=== PATIENT | female | born 1955 | race Caucasian/White ===

== ENCOUNTER → 2016-12-15 | Outpatient (CLI) | payer OTHER ==
[~2016-12-15] MED LIST: ALBU0.086 INH; ALBU6.7H INH; AMLO5 PO; BUPR-197 PO; FLUT1INH PO; HYDR-3580 PO; HYDR1CAP30 PO; ONDA4 PO; TIOT18I INH
--- NOTE | 2016-12-20 10:31 | RSPPFT ---
DATE OF PROCEDURE: 12/15/16 COMMENTS: Spirometry with FVC of 1.4 predicted 2.3, FEV1 of 0.9 predicted 1.9, FEV1/FVC ratio 65% predicted 84%. Post-bronchodilator FVC increases to 1.7. Lung volumes show significant air trapping with RV at 2.9 predicted 1.6. DLCO is 36% of predicted. IMPRESSION: On the basis of the above, patient has an obstructive lung defect with responsiveness to acutely inhaled bronchodilator. Severe air trapping is present. DLCO is decreased.
== END ==
LOC: HRSP 12:42
PROVIDERS: ATTEND Internal Medicine Pulmonary Disease
DX: R06.02 Shortness of breath (principal)
CPT/HCPCS: 94060; 94620; 94726; 94729

== ENCOUNTER → 2016-12-20 | Outpatient (CLI) | payer OTHER ==
--- NOTE | 2016-12-20 10:44 | RADRPT ---
EXAM DATE/TIME: 12/20/2016 10:17 [place] COMPARISON: No previous studies available for comparison. INDICATIONS : Dysphagia. Patient stated that pills were getting stuck. FLUORO TIME: 1.0 minutes IMAGE COUNT: 1 CONTRAST: Dose as prescribed by speech pathologist. MEDICAL HISTORY : Chronic obstructive pulmonary disease. Pt. is on steroids. Pt. states she was diagnosed with a hiatal hernia. SURGICAL HISTORY : None. ENCOUNTER: Initial ACUITY: 3 weeks PAIN SCORE: 0/10 LOCATION: Esophagus. FINDINGS: A modified barium swallow was performed with speech pathology. Patient was given a variety of liquids to swallow. Mild effacement is seen along the posterior margin of the upper cervical esophagus indicating mild cr icopharyngeus muscle hypertrophy. Swallowing mechanism is otherwise normal without evidence of aspiration. For a full detailed report, see report by the speech pathologist. CONCLUSION: Mild cricopharyngeus muscle hypertrophy Otherwise normal modified barium swallow without evidence of aspiration. Meek Simon MD on December 20, 2016 at 10:42 Board Certified Radiologist. This report was verified electronically.
== END ==
LOC: HRAD 09:49
PROVIDERS: ATTEND Internal Medicine Pulmonary Disease
DX: R13.10 Dysphagia, unspecified (principal)
CPT/HCPCS: 74230; 92611; G8996; G8997; G8998

== ENCOUNTER → 2017-08-09 | Outpatient (CLI) | payer OTHER | LOC: HCAV 10:41 | PROVIDERS: ATTEND Internal Medicine Pulmonary Disease | DX: J44.9 Chronic obstructive pulmonary disease, unspecified (principal) | CPT/HCPCS: 94618 ==

== ENCOUNTER 2018-06-20 15:59 | Inpatient (IN) ==
--- NOTE | 2018-06-20 17:37 | ED ---
HPI General Chief Complaint: Respiratory Symptoms Stated Complaint: sob/ dr sent Time Seen by Provider: 06/20/18 17:25 Source: patient Mode of arrival: ambulatory Limitations: no limitations History of Present Illness 62-year-old female complains of shortness of breath. Patient has history of COPD. Patient has been seen by her corporate law assistant several times this week for COPD exacerbation. Patient was given IM injection of steroid in the office. Patient states that she has been using nebulizer treatment at home. Last nebulizer treatment was yesterday. Patient denies any fever or chills. Patient states that she has mild intermittent dry cough. Patient denies any chest pain. Patient denies abdominal pain. Patient was seen by corporate law assistant today and was advised to go to ED to be admitted for acute exacerbation of COPD. Complaint: Reports shortness of breath and cough Onset (ago): day(s) Severity: severe Consistency/Duration: progressively worsening Relieving factors: bronchodilators Exacerbating factors: nothing Known history of: Reports COPD Associated symptoms: Reports cough and wheezing Treatment prior to arrival: Reports oxygen and bronchodilator Related Data Home Medications Medication Instructions Recorded Confirmed amlodipine [Norvasc] 5 mg PO DAILY 06/20/18 06/20/18 atorvastatin 20 mg PO DAILY 06/20/18 06/20/18 fluconazole 100 mg PO DAILY 06/20/18 06/20/18 fluticasone-vilanterol [Breo 1 inh INHALATION DAILY 06/20/18 06/20/18 Ellipta] ipratropium-albuterol 3 ml INHALATION QID 06/20/18 06/20/18 levothyroxine [Synthroid] 25 mcg PO DAILY 06/20/18 06/20/18 montelukast 10 mg PO DAILY 06/20/18 06/20/18 prednisone 20 mg PO TID 06/20/18 06/20/18 ranitidine HCl [Zantac] 150 mg PO BID 06/20/18 06/20/18 venlafaxine 225 mg PO TID 06/20/18 06/20/18 Allergies Allergy/AdvReac Type Severity Reaction Status Date / Time Sulfa (Sulfonamide Allergy Severe Hives Verified 06/20/18 17:26 Antibiotics) Review of Systems ROS: all other systems reviewed are negative PMFSH Medical History Medical History COPD (chronic obstructive pulmonary disease) (Acute) HBP (high blood pressure) (Acute) History of hysterectomy (Acute) Hypothyroidism (Acute) Surgical History Surgical History History of appendectomy (Acute) Hx of section (Acute) Social History Social History Substance History: No History of Abuse Second Hand Smoke Exposure: No Smoking Status: Former smoker Tobacco Type: Cigarettes How Often Do You Have a Drink Containing Alcohol: Monthly or less Recent Travel in [facility] within the Last 8 Weeks: No Recent Out of Country Travel within the Last 8 Weeks: No Immunization History Tetanus Immunization: >5 Years Exam Narrative Exam Narrative: GENERAL: Well-nourished, well-developed patient. SKIN: Focused skin assessment warm/dry. HEAD: Normocephalic. EYES: No scleral icterus. No injection or drainage. NECK: Supple, trachea midline. No JVD or lymphadenopathy. CARDIOVASCULAR: Regular rate and rhythm without murmurs, gallops, or rubs. RESPIRATORY: Breath sounds equal bilaterally. No accessory muscle use. Patient has moderate expiratory wheezes bilaterally. Few rhonchi at the bases. GASTROINTESTINAL: Abdomen soft, non-tender, nondistended. MUSCULOSKELETAL: No cyanosis, or edema. BACK: Nontender without obvious deformity. No CVA tenderness. Neurologic exam normal. Course Initial Documented Vital Signs Temperature 97.5 F L 06/20/18 16:04 Pulse Rate 93 H 06/20/18 16:04 Respiratory Rate 28 H 06/20/18 16:04 Blood Pressure 136/65 06/20/18 16:04 Pulse Oximetry 97 06/20/18 16:04 Last Documented Vital Signs Temperature 97.9 F 06/20/18 18:26 Pulse Rate 81 06/20/18 18:26 Respiratory Rate 20 06/20/18 18:26 Blood Pressure 129/60 06/20/18 18:26 Pulse Oximetry 96 06/20/18 18:26 Medical Decision Making MDM Narrative Medical decision making narrative: 62-year-old female with coughing wheezing and shortness of breath. History of COPD. Patient has been seen by corporate law assistant this week and was advised to be admitted for acute exacerbation COPD. Albuterol with Atrovent unit of treatment x3. Solu-Medrol 125 mg IV. Medical Screen Exam Complete: Yes Emergency Medical Condition: Yes Lab Data Lab results reviewed: Yes I reviewed the patient's lab results. Result diagrams: 06/20/18 17:30 06/20/18 17:45 Lab Results 06/20/18 06/20/18 Range/Units 17:30 17:45 WBC 14.1 H (4.0-11.0) th/mm3 RBC 4.59 (4.00-5.30) mil/mm3 Hgb 14.1 (11.6-15.3) gm/dL Hct 41.7 (35.0-46.0) % MCV 90.8 (80.0-100.0) fL MCH 30.7 (27.0-34.0) pg MCHC 33.8 (32.0-36.0) % RDW 13.3 (11.6-17.2) % Plt Count 200 (150-450) th/mm3 MPV 7.9 (7.0-11.0) fL Neut % (Auto) 82.7 H (16.0-70.0) % Lymph % (Auto) 6.6 L (9.0-44.0) % [place] % (Auto) 9.9 H (0.0-8.0) % Eos % (Auto) 0.6 (0.0-4.0) % Baso % (Auto) 0.2 (0.0-2.0) % Neut # (Auto) 11.7 H (1.8-7.7) th/mm3 Lymph # (Auto) 0.9 L (1.0-4.8) th/mm3 [place] # (Auto) 1.4 H (0.0-0.9) th/mm3 Eos # (Auto) 0.1 (0.0-0.4) th/mm3 Baso # (Auto) 0.0 (0.0-0.2) th/mm3 WBC Differential . Differential Comment Auto diff final Sodium 146 H (136-145) meq/L Potassium 4.5 (3.5-5.1) meq/L Chloride 111 H (98-107) meq/L Carbon Dioxide 30.8 (21.0-32.0) meq/L Anion Gap 4 L (5-15) meq/L BUN 26 H (7-18) mg/dL Creatinine 0.70 (0.50-1.00) mg/dL Estimated GFR 85 L (>89) mL/min Random Glucose 76 (74-106) mg/dL Calcium 8.3 L (8.5-10.1) mg/dL Total Bilirubin 0.4 (0.2-1.0) mg/dL AST 17 (15-37) U/L ALT 38 (10-53) U/L Alkaline Phosphatase 57 (45-117) U/L Total Protein 5.9 L (6.4-8.2) g/dL Albumin 3.2 L (3.4-5.0) g/dL Imaging Data Attestation: I personally reviewed and interpreted this imaging study as follows : Radiologist's impression: Chest X-Ray 06/20/18 17:32 CONCLUSION: 1. No acute cardiopulmonary disease identified. 2. Prominent emphysematous findings of the right upper lobe. Discharge Plan Discharge Disposition Patient Disposition: ED Admit(ED Internal Use Only) Discharge Order Discharge Orders: ED Use Only Admit Order (Routine); Ordered 06/20/18 Ordered By: Erasto Day Discharge Details Diagnosis: COPD with acute exacerbation Physicians Team ED Provider: Erasto Day Primary Care Provider: Zander Rivers Rxs /Orders / Referrals /Forms Prescriptions: No Action fluconazole 100 mg Tablet 100 mg PO DAILY RF: 0 atorvastatin 20 mg Tablet 20 mg PO DAILY RF: 0 ipratropium-albuterol 0.5 mg-3 mg(2.5 mg base)/3 mL Solution For Nebulization 3 ml INHALATION QID RF: 0 prednisone 20 mg Tablet 20 mg PO TID RF: 0 amlodipine [Norvasc] 5 mg Tablet 5 mg PO DAILY RF: 0 levothyroxine [Synthroid] 25 mcg Tablet 25 mcg PO DAILY RF: 0 ranitidine HCl [Zantac] 150 mg Tablet 150 mg PO BID RF: 0 montelukast 10 mg Tablet 10 mg PO DAILY RF: 0 venlafaxine 225 mg Tablet Extended Release 24hr 225 mg PO TID RF: 0 fluticasone-vilanterol [Breo Ellipta] 200-25 mcg/dose Blister With Device 1 inh INHALATION DAILY RF: 0 Status ED Status: With Doctor
[2018-06-20 17:52] LABS: Baso % (Auto) 0.2 % (0.0-2.0); Eos # (Auto) 0.1 th/mm3 (0.0-0.4); Eos % (Auto) 0.6 % (0.0-4.0); Hematocrit 41.7 % (35.0-46.0); Hemoglobin 14.1 gm/dL (11.6-15.3); Lymph # (Auto) 0.9 th/mm3 (1.0-4.8); Lymph % (Auto) 6.6 % (9.0-44.0); Mean Corpuscular HGB Conc 33.8 % (32.0-36.0); Mean Corpuscular Hemoglobin 30.7 pg (27.0-34.0); Mean Corpuscular Volume 90.8 fL (80.0-100.0); Mean Platelet Volume 7.9 fL (7.0-11.0); Mono # (Auto) 1.4 th/mm3 (0.0-0.9); Mono % (Auto) 9.9 % (0.0-8.0); Neut # (Auto) 11.7 th/mm3 (1.8-7.7); Neut % (Auto) 82.7 % (16.0-70.0); Platelet Count 200 th/mm3 (150-450); Red Blood Count 4.59 mil/mm3 (4.00-5.30); Red Cell Distribution Width 13.3 % (11.6-17.2); White Blood Count 14.1 th/mm3 (4.0-11.0)
--- NOTE | 2018-06-20 17:57 | XR ---
EXAM DATE: 06/20/2018 5:53 PM EST AGE/SEX: 62 years / Female INDICATIONS: Shortness of breath. Congestion. CLINICAL DATA: This is the patient's initial encounter. Patient reports that signs and symptoms have been present for 1 week and indicates a pain score of 0/10. MEDICAL/SURGICAL HISTORY: Chronic obstructive pulmonary disease. None. COMPARISON: [facility], XR CHEST PA AND LAT, 05/27/2018. . FINDINGS: Single AP view the chest. Emphysematous findings in the right upper lung zone. The lungs ar e clear. Cardiomediastinal silhouette within normal limits. No evidence of pleural effusion or pneu mothorax. CONCLUSION: 1. No acute cardiopulmonary disease identified. 2. Prominent emphysematous findings of the right upper lobe. Electronically signed by: David Garrison MD Board Certified Radiologist 06/20/2018 5:56 PM EST
[2018-06-20 18:33] LABS: Albumin 3.2 g/dL (3.4-5.0); Anion Gap 4 meq/L (5-15); Aspartate Aminotransferase 17 U/L (15-37); Blood Urea Nitrogen 26 mg/dL (7-18); Calcium 8.3 mg/dL (8.5-10.1); Carbon Dioxide 30.8 meq/L (21.0-32.0); Chloride 111 meq/L (98-107); Glomerular Filtration Rate 85 mL/min (>89); Glucose,Random 76 mg/dL (74-106); Potassium 4.5 meq/L (3.5-5.1); Sodium 146 meq/L (136-145)
[2018-06-20 18:35] LABS: Alanine Aminotransferase 38 U/L (10-53)
[2018-06-20 18:36] LABS: Alkaline Phosphatase 57 U/L (45-117); Total Protein 5.9 g/dL (6.4-8.2)
[2018-06-20] MEDS ORDERED: Bisacodyl 10 MG Supp RECTAL PRN (19:22)
[2018-06-20] MEDS ORDERED: Acetaminophen 325 MG Tablet PO PRN (19:22)
[2018-06-20] MEDS ORDERED: Sodium Chlor 0.9% Inj 250 ML IV.SIG SCH (19:23)
--- NOTE | 2018-06-20 19:24 | P.HPIM ---
History of Present Illness Primary Care Physician: Clark Rivers MD History of Present Illness: This is a 62-year-old female with a PMH of HTN, Hypothyroidism and COPD who was referred to the ER by her Warehouse Delivery Manager, Dr. Landin, for admission. Pt reports ongoing SOB/wheezing for the last 3wks, has been on PO steroids w/ tapering dose since 06/06/18 w/ minimal improvement. Seen in office today and referred to the ER for admission. Denies fever or chills. +cough, non-productive. +dyspnea w/ exertion. No c/o chest pain. On arrival, BP 136/65, HR 93, O2 sat 97% on RA, Afebrile. WBC 14.1. BUN 26, GFR 85. CXR with prominent emphysematous findings right upper lobe. Diagnosis (1) HTN (hypertension): (2) Dehydration: (3) COPD (chronic obstructive pulmonary disease): Review of Systems PAST FAMILY HISTORY: Reviewed. No h/o DM or CAD Review of Systems: all other systems reviewed are negative [facility] Medical History Medical History COPD (chronic obstructive pulmonary disease) (Acute) HBP (high blood pressure) (Acute) History of hysterectomy (Acute) Hypothyroidism (Acute) Surgical History Surgical History History of appendectomy (Acute) Hx of section (Acute) Social History Social History Substance History: No History of Abuse Second Hand Smoke Exposure: No Smoking Status: Former smoker Tobacco Type: Cigarettes How Often Do You Have a Drink Containing Alcohol: Monthly or less Recent Travel in [facility] within the Last 8 Weeks: No Recent Out of Country Travel within the Last 8 Weeks: No Immunization History Tetanus Immunization: >5 Years Medications and Allergies Allergies Allergy/AdvReac Type Severity Reaction Status Date / Time Sulfa (Sulfonamide Allergy Severe Hives Verified 06/20/18 17:26 Antibiotics) Home Medications Medication Instructions Recorded Confirmed Type amlodipine [Norvasc] 5 mg PO DAILY 06/20/18 06/20/18 History atorvastatin 20 mg PO DAILY 06/20/18 06/20/18 History fluconazole 100 mg PO DAILY 06/20/18 06/20/18 History fluticasone-vilanterol [Breo 1 inh INHALATION DAILY 06/20/18 06/20/18 History Ellipta] ipratropium-albuterol 3 ml INHALATION QID 06/20/18 06/20/18 History levothyroxine [Synthroid] 25 mcg PO DAILY 06/20/18 06/20/18 History montelukast 10 mg PO DAILY 06/20/18 06/20/18 History prednisone 20 mg PO TID 06/20/18 06/20/18 History ranitidine HCl [Zantac] 150 mg PO BID 06/20/18 06/20/18 History venlafaxine 225 mg PO TID 06/20/18 06/20/18 History Physical Exam Vital signs: Vital Signs 06/20/18 16:04 06/20/18 17:33 06/20/18 17:39 Temperature 97.5 F L Pulse Rate 93 H 83 82 Respiratory Rate 28 H 30 H Blood Pressure 136/65 Pulse Oximetry 97 96 06/20/18 17:40 06/20/18 17:47 06/20/18 18:26 Temperature 97.9 F Pulse Rate 82 84 81 Respiratory Rate 26 H 24 20 Blood Pressure 129/60 Pulse Oximetry 96 06/20/18 19:15 Temperature Pulse Rate 82 Respiratory Rate 18 Blood Pressure 129/69 Pulse Oximetry 96 Intake & Output 06/20/18 06/20/18 06/21/18 06:59 18:59 06:59 Weight 53.07 kg Narrative: PE: GENERAL: Pleasant young white female in no acute distress. SKIN: Focused skin assessment warm and dry. +steroid facies. HEENT: PERRLA, EOMI. No scleral icterus or conjunctival pallor. No lid lag or facial droop. CARDIOVASCULAR: Regular rate and rhythm. No obvious murmurs to auscultation. No chest tenderness to palpation. RESPIRATORY: No obvious rhonchi. +wheezing. Breath sounds equal bilaterally. GASTROINTESTINAL: Abdomen soft, non-tender, nondistended. BS normal. MUSCULOSKELETAL: Extremities without clubbing, cyanosis, or edema. No obvious deformities. NEUROLOGICAL: Awake, alert and oriented x4. No focal neurologic deficits. Moving both upper and lower extremities spontaneously. PSYCHIATRIC: Appropriate mood and affect. Insight and judgment normal. Results Labs CBC & Chem 7: 06/20/18 17:30 06/20/18 17:45 Imaging Impressions Chest X-Ray 06/20/18 17:32 CONCLUSION: 1. No acute cardiopulmonary disease identified. 2. Prominent emphysematous findings of the right upper lobe. Caprini VTE Risk Assessment Caprini VTE Risk Assessment: No/Low Risk (score <= 1) Caprini Risk Assessment Model: Point Value = 1 Point Value = 2 Point Value = 3 Point Value = 5 Age 41-60 Minor surgery BMI > 25 kg/m2 Swollen legs Varicose veins or History of unexplained or recurrent spontaneous Oral contraceptives or hormone replacement Sepsis (< 1 month) Serious lung disease, including pneumonia (< 1 month) Abnormal pulmonary function Acute myocardial infarction Congestive heart failure (< 1 month) History of inflammatory bowel disease Medical patient at bed rest Age 61-74 Arthroscopic surgery Major open surgery (> 45 min) Laparoscopic surgery (> 45 min) Malignancy Confined to bed (> 72 hours) Immobilizing plaster cast Central venous access Age >= 75 History of VTE Family history of VTE Factor V Leiden Prothrombin [id number] Lupus anticoagulant Anticardiolipin antibodies Elevated serum homocysteine Heparin-induced thrombocytopenia Other congenital or acquired thrombophilia Stroke (< 1 month) Elective arthroplasty Hip, pelvis, or leg fracture Acute spinal cord injury (< 1 month) Prophylaxis Regimen: Total Risk Factor Score Risk Level Prophylaxis Regimen 0-1 Low Early ambulation 2 Moderate Order ONE of the following: *Sequential Compression Device (SCD) *Heparin 5000 units SQ BID 3-4 Higher Order ONE of the following medications: *Heparin 5000 units SQ TID *Enoxaparin/Lovenox 40 mg SQ daily (WT < 150 kg, CrCl > 30 mL/min) *Enoxaparin/Lovenox 30 mg SQ daily (WT < 150 kg, CrCl > 10-29 mL/min) *Enoxaparin/Lovenox 30 mg SQ BID (WT < 150 kg, CrCl > 30 mL/min) AND/OR *Sequential Compression Device (SCD) 5 or more Highest Order ONE of the following medications: *Heparin 5000 units SQ TID (Preferred with Epidurals) *Enoxaparin/Lovenox 40 mg SQ daily (WT < 150 kg, CrCl > 30 mL/min) *Enoxaparin/Lovenox 30 mg SQ daily (WT < 150 kg, CrCl > 10-29 mL/min) *Enoxaparin/Lovenox 30 mg SQ BID (WT < 150 kg, CrCl > 30 mL/min) AND *Sequential Compression Device (SCD) Assessment and Plan (1) HTN (hypertension): Code(s): I10 - Essential (primary) hypertension Status: Acute (2) Dehydration: Code(s): E86.0 - Dehydration Status: Acute (3) COPD (chronic obstructive pulmonary disease): Code(s): J44.9 - Chronic obstructive pulmonary disease, unspecified Status: Acute Plan A/P: 1. COPD: Chronic Respiratory Failure w/ Acute Exacerbation. Moderate. On PO steroids w/ taper since 06/06/18 w/ no improvement, referred to ER by Warehouse Delivery Manager for admission. +extensive wheezing on exam. O2 sat normal. Admit for Observation. Solu-Medrol, DuoNeb prn and q6h, Mucinex, resume home MDI. Monitor O2 2. Dehydration: BUN 26, GFR 85, no previous labs for comparison, likely acute due to increased respiratory losses, IVF, repeat labs in am, monitor I/O 3. HTN: Resume home medications, monitor BP closely. 4. DVT Prophylaxis: SCD/Teds 5. Social work for d/c planning as needed. Discussed w/ Case Management, pt meets Obs status at this time. 6. Case discussed w/ ER physician at length, labs/records/imaging reviewed by me.
[2018-06-20] MEDS ORDERED: Sodium Chlor 0.9% Inj 250 ML IV.SIG ONE (20:30)
[2018-06-20] MEDS: MethylPREDNISolone Sod Succinate Inj 40 MG/ML Vial IV.PUSH SCH (21:48)
[2018-06-20] MEDS: guaiFENesin 600 MG ER Tablet PO SCH (21:49)
[2018-06-20] MEDS: Famotidine 20 MG Tablet PO SCH (21:50)
[2018-06-20] MEDS: Senna/Docusate Sodium 8.6/50 MG Tablet PO SCH (23:17)
[2018-06-21] MEDS: MethylPREDNISolone Sod Succinate Inj 40 MG/ML Vial IV.PUSH SCH ×3 (02:30→14:17)
[2018-06-21 07:36] LABS: Baso % (Auto) 0.2 % (0.0-2.0); Hematocrit 43.3 % (35.0-46.0); Hemoglobin 14.9 gm/dL (11.6-15.3); Lymph # (Auto) 0.6 th/mm3 (1.0-4.8); Lymph % (Auto) 5.8 % (9.0-44.0); Mean Corpuscular HGB Conc 34.3 % (32.0-36.0); Mean Corpuscular Hemoglobin 31.5 pg (27.0-34.0); Mean Corpuscular Volume 91.7 fL (80.0-100.0); Mean Platelet Volume 8.2 fL (7.0-11.0); Mono # (Auto) 0.1 th/mm3 (0.0-0.9); Mono % (Auto) 0.6 % (0.0-8.0); Neut % (Auto) 93.4 % (16.0-70.0); Platelet Count 221 th/mm3 (150-450); Red Blood Count 4.72 mil/mm3 (4.00-5.30); Red Cell Distribution Width 15.5 % (11.6-17.2); White Blood Count 10.7 th/mm3 (4.0-11.0)
[2018-06-21 08:02] LABS: Albumin 3.2 g/dL (3.4-5.0); Anion Gap 6 meq/L (5-15); Aspartate Aminotransferase 12 U/L (15-37); Blood Urea Nitrogen 21 mg/dL (7-18); Calcium 8.2 mg/dL (8.5-10.1); Carbon Dioxide 28.3 meq/L (21.0-32.0); Chloride 108 meq/L (98-107); Glomerular Filtration Rate 79 mL/min (>89); Glucose,Random 155 mg/dL (74-106); Potassium 4.9 meq/L (3.5-5.1); Sodium 142 meq/L (136-145)
[2018-06-21 08:03] LABS: Alanine Aminotransferase 38 U/L (10-53)
[2018-06-21 08:05] LABS: Alkaline Phosphatase 60 U/L (45-117); Total Protein 6.1 g/dL (6.4-8.2)
--- NOTE | 2018-06-21 09:07 | P.PNIM ---
Subjective Interval history: Follow-up for COPD exacerbation. Patient reports feeling much better today. States her wheezing has significantly improved. She states she is finally able to speak in full sentences. She denies any significant shortness of breath mild dyspnea with exertion. She reports a continued cough, nonproductive, but feels "looser". Denies fevers or chills. States she has Breo inhaler, Incruse inhaler, Spiriva, and nebs at home. She states over the past month she has completed 2 courses of prednisone tapers and antibiotics. She denies any other medical complaints at this time. She follows with Dr. Landin pulmonology as outpatient. Physical Exam Vital signs: Vital Signs 06/20/18 16:04 06/20/18 17:33 06/20/18 17:39 Temperature 97.5 F L Pulse Rate 93 H 83 82 Respiratory Rate 28 H 30 H Blood Pressure 136/65 Pulse Oximetry 97 96 06/20/18 17:40 06/20/18 17:47 06/20/18 18:26 Temperature 97.9 F Pulse Rate 82 84 81 Respiratory Rate 26 H 24 20 Blood Pressure 129/60 Pulse Oximetry 96 06/20/18 19:15 06/20/18 20:00 06/20/18 22:02 Temperature 98.6 F Pulse Rate 82 88 81 Respiratory Rate 18 18 14 Blood Pressure 129/69 119/68 Pulse Oximetry 96 97 06/21/18 00:00 06/21/18 03:49 06/21/18 07:47 Temperature 98.0 F 97.8 F 97.6 F Pulse Rate 82 86 80 Respiratory Rate 18 16 18 Blood Pressure 108/84 127/91 H 147/75 H Pulse Oximetry 95 96 95 06/21/18 08:34 Temperature Pulse Rate 84 Respiratory Rate 18 Blood Pressure Pulse Oximetry Intake & Output 06/20/18 06/21/18 06/21/18 18:59 06:59 18:59 Intake Total 1460 / 1460 Balance 1460 / 1460 Weight 53.07 kg 53.07 kg Intake: IV 500 / 500 NS Inj 250 ML @ 500 mls/hr IV. 500 / 500 SIG BOLUS ONE Rx#:[id number] Oral 960 / 960 Other: # Voids 4 Date of Last Bowel Movement 06/20/18 Weight On Admission 53.07 kg Narrative: GENERAL: Well-nourished, well-developed pleasant middle-age female patient in [facility]. SKIN: Warm and dry. No rash. + Steroid grimes face with periorbital swelling. HEENT: Normocephalic. Atraumatic. Pupils equal and round. Mucous membranes pink and moist. CARDIOVASCULAR: Mildly tachycardic, regular rhythm. No murmur appreciated. RESPIRATORY: No accessory muscle use. Faint expiratory wheezing, otherwise clear. Breath sounds equal bilaterally. GASTROINTESTINAL: Abdomen soft, non-tender, nondistended. Normoactive bowel sounds x4. MUSCULOSKELETAL: No obvious deformities. Extremities without clubbing, cyanosis , or edema. NEUROLOGICAL: Awake and alert. No obvious cranial nerve deficits. Moving all extremities spontaneously. Normal speech. PSYCHIATRIC: Appropriate mood and affect; insight and judgment normal. Results Labs CBC & Chem 7: 06/21/18 06:50 06/21/18 06:50 Labs: Microbiology 06/20/18 17:51 Nasal Wash Influenza Types A,B Antigen - Final Negative for FLU A and B antigen Infection due to influenza A or B cannot be ruled out since the antigen present in the sample may be below the detection limit of the test. Imaging Imaging: Impressions Chest X-Ray 06/20/18 17:32 CONCLUSION: 1. No acute cardiopulmonary disease identified. 2. Prominent emphysematous findings of the right upper lobe. Assessment and Plan (1) HTN (hypertension): Code(s): I10 - Essential (primary) hypertension Status: Acute (2) Dehydration: Code(s): E86.0 - Dehydration Status: Acute (3) COPD (chronic obstructive pulmonary disease): Code(s): J44.9 - Chronic obstructive pulmonary disease, unspecified Status: Acute Plan 62-year-old female with a PMH of HTN, Hypothyroidism and COPD who was referred to the ER by her Manufacturing Production Technician, Dr. Landin, for admission. Pt reports ongoing SOB/wheezing for the last 3wks, has been on PO steroids w/ tapering dose since w/ minimal improvement. Sent by her air export coordinator Dr. Landin Acute COPD exacerbation: Failed outpatient management with 2 rounds of antibiotics and prednisone taper since early May. -CXR reviewed, shows prominent emphysematous findings in the right upper lobe -Continue steroids with IV Solu-Medrol 40 mg every 6 hours -Continue duo nebs every 6 hours and as needed -Continue Brio Ellipta -Mucinex twice daily -Consult pulmonology Dehydration: BUN 26, GFR 85, no previous labs for comparison, likely acute due to increased respiratory losses, -Give IVF -repeat labs improving HTN/HLD: Chronic, BP fairly well-controlled -Continue patient's Norvasc 5 mg daily, statin -Monitor BP, adjust antihypertensives as needed Hypothyroidism: Chronic -Continue patient's levothyroxine DVT Prophylaxis: SCD/Teds Discharge Planning: Likely discharge when cleared by pulmonology. Progress Note: Quality VTE Deep Vein Thrombosis/Pulmonary Embolism Present on Admission: No
[2018-06-21] MEDS: amLODIPine 5 MG Tablet PO SCH (09:46)
[2018-06-21] MEDS: Fluconazole 100 MG Tablet PO SCH (09:46)
[2018-06-21] MEDS: guaiFENesin 600 MG ER Tablet PO SCH ×2 (09:46→20:27)
[2018-06-21] MEDS: Senna/Docusate Sodium 8.6/50 MG Tablet PO SCH ×2 (09:46→20:29)
[2018-06-21] MEDS: Famotidine 20 MG Tablet PO SCH ×2 (09:46→20:27)
[2018-06-21] MEDS: Venlafaxine XR 75 MG Capsule PO SCH (09:46)
[2018-06-21] MEDS: Montelukast 10 MG Tablet PO SCH (09:54)
[2018-06-21 11:10] LABS: Lymphocytes 6 % (9-44); Monocytes 1 % (0-8); Myelocytes 1 % (0-0)
[2018-06-21 11:13] LABS: Platelet Estimate Normal (Normal); Platelet Morphology Normal (Normal)
--- NOTE | 2018-06-21 19:03 | MB ---
cc: Elgin Sandoval MD DATE: 06/21/2018 REQUESTING PHYSICIAN: Elsi Sorensen MD REASON FOR CONSULTATION: COPD, bronchitis. HISTORY OF PRESENT ILLNESS: Ms. Mirza is a pleasant 62-year-old female with history of hypertension, hypothyroidism, and bronchial asthma going on for the last few years. She has been disabled because of asthma for the last 4 years or so. Over the last 1 year, her symptoms are getting worse, and she says she is getting multiple courses of steroid to the extent that she has almost always been on prednisone. She came to the hospital with 3 weeks of worsening of shortness of breath, wheezing, congestion in the chest. No fever or chills. No night sweats. She was worked up in the hospital. She had a chest x-ray which showed no acute infiltrate. LABORATORY DATA: Her CBC showed WBC count 10.7, hemoglobin 14.9, hematocrit 43.3, MCV 90, and platelet count 221. Sodium 142, potassium 4.9, chloride 108, CO2 of 28, BUN 21, creatinine 0.75. PAST MEDICAL HISTORY: Significant for history of asthma, hypertension, hypothyroidism, history of 3 C-sections. SURGICAL HISTORY: History of appendectomy, sigmoidectomy, and complete hysterectomy. MEDICATIONS: 1. She is currently taking nebulizer treatment with DuoNeb. 2. Norvasc 5 mg daily. 3. Lipitor 20 mg a day. 4. Dulcolax suppository. 5. Pepcid 20 mg. 6. Diflucan 100 mg a day. 7. Breo Ellipta 200/25 once a day. 8. Solu-Medrol 40 mg every 6 hours. 9. Montelukast 10 mg a day. 10. Effexor 225 mg a day. ALLERGIES: SHE IS ALLERGIC TO SULFA. SOCIAL HISTORY: She used to work in the hospital in the sterile room. She is disabled for 4 years. She has history of smoking for 40-some years which she quit 3 years ago. Drinks socially. FAMILY HISTORY: She has 3 children. REVIEW OF SYSTEMS: Normally, she is up around and active. She does not know what causes flare-up in her symptoms. No seizures, stroke, epilepsy. No DVT or pulmonary embolism. PHYSICAL EXAMINATION: GENERAL: Well-developed, well-nourished female. Mildly short of breath and has audible wheezing. VITAL SIGNS: Her blood pressure 143/77, heart rate 103, respirations 22, temperature 98.6. HEENT: Pupils are equal and reactive to light. Oral mucosa and nasal mucosa normal. NECK: Supple. JVP not raised. CHEST: Bilateral expiratory rhonchi. CARDIOVASCULAR: S1, S2 normal. ABDOMEN: Benign. EXTREMITIES: No edema. IMPRESSION: 1. Chronic obstructive pulmonary disease exacerbation/bronchial asthma. 2. Bronchitis. 3. Hypertension. 4. Anxiety. 5. Hypothyroidism. 6. History of appendectomy, hysterectomy, sigmoidectomy. PLAN: 1. I discussed with the patient I will increase her Solu-Medrol to 125 mg every 6 hours for 24 hours and see the response. 2. Continue aerosol treatment with Breo Ellipta once a day. 3. Singulair 10 mg a day. 4. Zithromax 500 mg a day. 5. Heparin 5000 units every 12 hours for deep venous thrombosis prophylaxis. Further treatment will depend on the course in the hospital. Thank you, Dr. Elsi Sorensen, for this consult. MD WILLIAM Aceves/lorrie , 05:59 PM , 06:10 PM
[2018-06-21] MEDS: MethylPREDNISolone Sod Succinate Inj 125 MG/2 ML Vial IV.PUSH SCH (20:28)
[2018-06-22] MEDS: MethylPREDNISolone Sod Succinate Inj 125 MG/2 ML Vial IV.PUSH SCH ×5 (01:55→23:45)
[2018-06-22] MEDS: Fluconazole 100 MG Tablet PO SCH (08:24)
[2018-06-22] MEDS: amLODIPine 5 MG Tablet PO SCH (08:24)
[2018-06-22] MEDS: Venlafaxine XR 75 MG Capsule PO SCH (08:25)
[2018-06-22] MEDS: Montelukast 10 MG Tablet PO SCH (08:25)
[2018-06-22] MEDS: Famotidine 20 MG Tablet PO SCH ×2 (08:26→23:50)
[2018-06-22] MEDS: guaiFENesin 600 MG ER Tablet PO SCH ×2 (08:26→23:50)
[2018-06-22] MEDS: Senna/Docusate Sodium 8.6/50 MG Tablet PO SCH ×2 (08:42→22:01)
--- NOTE | 2018-06-22 10:28 | P.PNIM ---
Subjective Interval history: Follow-up for COPD exacerbation. Patient states she started to feel worse last night, with increasing shortness of breath, dyspnea on exertion, wheezing, and cough. She states her cough has become more productive with yellowgreen sputum. Denies fevers or chills. She feels she would benefit from more frequent breathing treatments. She agrees to starting azithromycin. She has no other medical complaints at this time. Physical Exam Vital signs: Vital Signs 06/21/18 11:53 06/21/18 14:52 06/21/18 16:15 Temperature 98.7 F 98.6 F Pulse Rate 89 103 H 103 H Respiratory Rate 18 18 20 Blood Pressure 152/70 H 143/77 H Pulse Oximetry 95 97 06/21/18 19:46 06/21/18 20:00 06/21/18 23:13 Temperature 98.2 F Pulse Rate 101 H 107 H 94 H Respiratory Rate 19 22 19 Blood Pressure 160/82 H Pulse Oximetry 96 92 L 06/21/18 23:21 06/21/18 23:24 06/22/18 00:40 Temperature 98.2 F Pulse Rate 102 H 100 H Respiratory Rate 22 Blood Pressure 145/84 H Pulse Oximetry 96 94 L 06/22/18 03:24 06/22/18 07:37 06/22/18 08:00 Temperature 98.6 F 97.7 F Pulse Rate 96 H 90 90 Respiratory Rate 20 18 18 Blood Pressure 123/73 140/81 Pulse Oximetry 97 97 06/22/18 10:02 Temperature Pulse Rate 85 Respiratory Rate 16 Blood Pressure Pulse Oximetry Intake & Output 06/21/18 06/22/18 06/22/18 18:59 06:59 18:59 Other: # Voids 5 2 Date of Last Bowel Movement 06/21/18 Narrative: GENERAL: Well-nourished, well-developed pleasant middle-age female patient in [facility]. SKIN: Warm and dry. No rash. + Steroid grimes face with periorbital swelling. HEENT: Normocephalic. Atraumatic. Pupils equal and round. Mucous membranes pink and moist. CARDIOVASCULAR: Mildly tachycardic, regular rhythm. No murmur appreciated. RESPIRATORY: No accessory muscle use. Significant diffuse wheezing and poor air movement throughout all lung dickens. Breath sounds equal bilaterally. GASTROINTESTINAL: Abdomen soft, non-tender, nondistended. Normoactive bowel sounds x4. MUSCULOSKELETAL: No obvious deformities. Extremities without clubbing, cyanosis , or edema. NEUROLOGICAL: Awake and alert. No obvious cranial nerve deficits. Moving all extremities spontaneously. Normal speech. PSYCHIATRIC: Appropriate mood and affect; insight and judgment normal. Results Labs CBC & Chem 7: 06/21/18 06:50 06/21/18 06:50 Assessment and Plan (1) HTN (hypertension): Code(s): I10 - Essential (primary) hypertension Status: Acute (2) Dehydration: Code(s): E86.0 - Dehydration Status: Acute (3) COPD (chronic obstructive pulmonary disease): Code(s): J44.9 - Chronic obstructive pulmonary disease, unspecified Status: Acute Plan 62-year-old female with a PMH of HTN, Hypothyroidism and COPD who was referred to the ER by her Americanization Teacher, Dr. Landin, for admission. Pt reports ongoing SOB/wheezing for the last 3wks, has been on PO steroids w/ tapering dose since w/ minimal improvement. Sent by her manager retirement Dr. Landin Acute COPD exacerbation: Failed outpatient management with 2 rounds of antibiotics and prednisone taper since early May. -CXR reviewed, shows prominent emphysematous findings in the right upper lobe -Continue steroids with IV Solu-Medrol -Continue duo nebs every 4 hours and as needed -Continue Brio Ellipta -Mucinex twice daily, Tessalon Perrles tid -Consult pulmonology, appreciate assistance, increased steroids to IV Solu- Medrol 125 mg q6h -Added Azithromycin 500mg daily -Patient with significant wheezing/dyspnea, minimal improvement in observation, will admit Dehydration: BUN 26, GFR 85, no previous labs for comparison, likely acute due to increased respiratory losses, -Give IVF -repeat labs improving HTN/HLD: Chronic, BP fairly well-controlled -Continue patient's Norvasc 5 mg daily, statin -Monitor BP, adjust antihypertensives as needed Hypothyroidism: Chronic -Continue patient's levothyroxine DVT Prophylaxis: heparin, SCD/Teds Discharge Planning: Patient has had minimal improvement in observation, still with significant wheezing and poor air movement, now requiring oxygen. Requires admission for at least an additional 2-3 days of IV steroids and DuoNeb treatments. Likely discharge when clinically improved and cleared by pulmonology. Patient does not wear oxygen at home, may need home oxygen walk test prior to discharge if unable to wean off. Patient does have nebulizer machine, Breo inhaler, Incruse inhaler, Spiriva at home. Progress Note: Quality VTE Deep Vein Thrombosis/Pulmonary Embolism Present on Admission: No
[2018-06-22] MEDS: Azithromycin 250 MG Tablet PO SCH (11:57)
[2018-06-22] MEDS: Benzonatate 100 MG Capsule PO SCH ×2 (13:07→17:20)
--- NOTE | 2018-06-22 14:30 | P.PNIM ---
Subjective Interval history: Follow up for COPD exacerbation. The patient states she was doing better yesterday afternoon, however last night she had to use the oxygen most of the night. The patient reports shortness of breath, productive cough with green colored phlegm, wheezing and mild throat irritation. The patient endorses she received a breathing treatment earlier this morning but would like to have another treatment. Advised the patient, RT will be notified and verbalized understanding. She denies any recent fever/chills or chest pain. Denies any nausea or vomiting. Patient tolerating oral intake. Vital signs reviewed and stable. Spoke to RN, asked her to speak to RT about providing another treatment and no new concerns. Physical Exam Vital signs: Vital Signs 06/21/18 14:52 06/21/18 16:15 06/21/18 19:46 Temperature 98.6 F Pulse Rate 103 H 103 H 101 H Respiratory Rate 18 20 19 Blood Pressure 143/77 H Pulse Oximetry 97 96 06/21/18 20:00 06/21/18 23:13 06/21/18 23:21 Temperature 98.2 F 98.2 F Pulse Rate 107 H 94 H 102 H Respiratory Rate 22 19 22 Blood Pressure 160/82 H 145/84 H Pulse Oximetry 92 L 96 06/21/18 23:24 06/22/18 00:40 06/22/18 03:24 Temperature 98.6 F Pulse Rate 100 H 96 H Respiratory Rate 20 Blood Pressure 123/73 Pulse Oximetry 94 L 97 06/22/18 07:37 06/22/18 08:00 06/22/18 10:02 Temperature 97.7 F Pulse Rate 90 90 85 Respiratory Rate 18 18 16 Blood Pressure 140/81 Pulse Oximetry 97 06/22/18 11:16 06/22/18 12:00 06/22/18 12:21 Temperature 98.2 F Pulse Rate 78 105 H 82 Respiratory Rate 20 16 Blood Pressure 126/66 Pulse Oximetry 97 Intake & Output 06/21/18 06/22/18 06/22/18 18:59 06:59 18:59 Other: # Voids 5 2 Date of Last Bowel Movement 06/21/18 06/21/18 Narrative: GENERAL: Well-nourished, well-developed pleasant middle-age female patient in mild respiratory distress. SKIN: Warm and dry. No rash. + Steroid grimes face with periorbital swelling. HEENT: Normocephalic. Atraumatic. Pupils equal and round. Mucous membranes pink and moist. Posterior oropharynx mild erythema noted CARDIOVASCULAR: Regular rate and rhythm. No murmur appreciated. RESPIRATORY: Accessory muscle use noted. Audible expiratory wheezing noted. Poor air movement and expiratory wheezing in all lung dickens. GASTROINTESTINAL: Abdomen soft, non-tender, nondistended. Normoactive bowel sounds x4. MUSCULOSKELETAL: No obvious deformities. Extremities without clubbing, cyanosis , or edema. NEUROLOGICAL: Awake and alert. No obvious cranial nerve deficits. Moving all extremities spontaneously. Normal speech. PSYCHIATRIC: Appropriate mood and affect; insight and judgment normal. Results - Labs CBC & Chem 7: 06/21/18 06:50 06/21/18 06:50 Assessment and Plan - Plan 62-year-old female with a PMH of HTN, Hypothyroidism and COPD who was referred to the ER by her Front Maker, Dr. Landin, for admission. Pt reports ongoing SOB/wheezing for the last 3wks, has been on PO steroids w/ tapering dose since w/ minimal improvement. Sent by her broadcaster Dr. Landin Acute COPD exacerbation: Failed outpatient management with 2 rounds of antibiotics and prednisone taper since early May. -CXR reviewed, shows prominent emphysematous findings in the right upper lobe -Continue Brio Ellipta -Mucinex twice daily -Pulmonology consulted; Dr. Sandoval recommends Solu-Medrol to 125 mg every 6 hours for 24 hours, continue aerosol treatment with Breo Ellipta once a day, singulair 10 mg a day, zithromax 500 mg a day, heparin 5000 units every 12 hours for deep venous thrombosis prophylaxis -06/22: Continue steroids with IV Solu-Medrol 125 mg every 6 hours x [address] Sandoval -06/22: Increased duo nebs to every 4 hours and as needed; patient having increase wheezing and poor air movement -06/22: Started tesslon perles tid for cough -Continue to monitor Dehydration: BUN 26, GFR 85, no previous labs for comparison, likely acute due to increased respiratory losses -Give IVF -Repeat labs improving HTN/HLD: Chronic, BP fairly well-controlled -Continue patient's Norvasc 5 mg daily, statin -Monitor BP, adjust antihypertensives as needed Hypothyroidism: Chronic -Continue patient's levothyroxine DVT Prophylaxis: Heparin sq every 12 hours SCD/Teds Discharge Planning: Likely discharge when cleared by pulmonology. Note prepared by LOCO [email or web address]. Discussed the patient with Evi Sales PA-C, agrees with above assessment and plan. See official note from Evi Sales PA-C.
--- NOTE | 2018-06-22 15:31 | P.PN ---
Subjective Interval history: She is still wheezing. No chest pain.. Off O2 sat 93. Physical Exam Vital signs: Vital Signs 06/21/18 16:15 06/21/18 19:46 06/21/18 20:00 Temperature 98.6 F 98.2 F Pulse Rate 103 H 101 H 107 H Respiratory Rate 20 19 22 Blood Pressure 143/77 H 160/82 H Pulse Oximetry 97 96 92 L 06/21/18 23:13 06/21/18 23:21 06/21/18 23:24 Temperature 98.2 F Pulse Rate 94 H 102 H Respiratory Rate 19 22 Blood Pressure 145/84 H Pulse Oximetry 96 94 L 06/22/18 00:40 06/22/18 03:24 06/22/18 07:37 Temperature 98.6 F Pulse Rate 100 H 96 H 90 Respiratory Rate 20 18 Blood Pressure 123/73 Pulse Oximetry 97 06/22/18 08:00 06/22/18 10:02 06/22/18 11:16 Temperature 97.7 F Pulse Rate 90 85 78 Respiratory Rate 18 16 Blood Pressure 140/81 Pulse Oximetry 97 06/22/18 12:00 06/22/18 12:21 Temperature 98.2 F Pulse Rate 105 H 82 Respiratory Rate 20 16 Blood Pressure 126/66 Pulse Oximetry 97 Intake & Output 06/21/18 06/22/18 06/22/18 18:59 06:59 18:59 Other: # Voids 5 2 Date of Last Bowel Movement 06/21/18 06/21/18 GENERAL: Mid aged W/F alert SKIN: Warm and dry. HEAD: Atraumatic. Normocephalic. EYES: Pupils equal and round. No scleral icterus. No injection or drainage. ENT: No nasal bleeding or discharge. Mucous membranes pink and moist. NECK: Trachea midline. No JVD. CARDIOVASCULAR: Regular rate and rhythm. RESPIRATORY: Bilateral wheeze.. Breath sounds equal bilaterally. GASTROINTESTINAL: Abdomen soft, non-tender, nondistended. Hepatic and splenic margins not palpable. MUSCULOSKELETAL: Extremities without clubbing, cyanosis, or edema. No obvious deformities. NEUROLOGICAL: Awake and alert. No obvious cranial nerve deficits. Motor grossly within normal limits.. Normal speech. PSYCHIATRIC: Appropriate mood and affect; insight and judgment normal. Results - Labs CBC & Chem 7: 06/21/18 06:50 02/08/19 06:50 Assessment and Plan - Assessment (1) Asthma Code(s): J45.909 - Unspecified asthma, uncomplicated Status: Acute (2) COPD (chronic obstructive pulmonary disease) Code(s): J44.9 - Chronic obstructive pulmonary disease, unspecified Status: Acute (3) Dehydration Code(s): E86.0 - Dehydration Status: Acute (4) HTN (hypertension) Code(s): I10 - Essential (primary) hypertension Status: Acute (5) COPD with acute exacerbation Code(s): J44.1 - Chronic obstructive pulmonary disease with (acute) exacerbation Status: Acute - Plan 1. Cont solumedrol 80 mg IV Q8H 2. Duoneb nebs qid. 3. Cont singulair 10 mg daily. 4. O2 2 L N/C 5. PFT on Sunday
[2018-06-22] MEDS: Heparin - SQ 10,000 UNITS/ML Vial SQ SCH (23:50)
[2018-06-23] MEDS: MethylPREDNISolone Sod Succinate Inj 125 MG/2 ML Vial IV.PUSH SCH ×5 (06:01→22:37)
[2018-06-23] MEDS: Venlafaxine XR 75 MG Capsule PO SCH (08:38)
[2018-06-23] MEDS: amLODIPine 5 MG Tablet PO SCH (08:42)
[2018-06-23] MEDS: Benzonatate 100 MG Capsule PO SCH ×3 (08:42→17:11)
[2018-06-23] MEDS: guaiFENesin 600 MG ER Tablet PO SCH ×2 (08:42→22:34)
[2018-06-23] MEDS: Azithromycin 250 MG Tablet PO SCH (08:42)
[2018-06-23] MEDS: Famotidine 20 MG Tablet PO SCH ×2 (08:42→22:34)
[2018-06-23] MEDS: Senna/Docusate Sodium 8.6/50 MG Tablet PO SCH (08:42)
[2018-06-23] MEDS: Fluconazole 100 MG Tablet PO SCH (08:42)
[2018-06-23] MEDS: Heparin - SQ 10,000 UNITS/ML Vial SQ SCH ×2 (08:43→22:35)
[2018-06-23] MEDS: Montelukast 10 MG Tablet PO SCH (08:47)
--- NOTE | 2018-06-23 11:11 | P.PN ---
Subjective Interval history: Follow-up acute on chronic COPD exacerbation/chronic oxygen dependent d/t respiratory failure June 23, 2018-patient seen and examined, significant wheezing on both inspiration and expiration along with shortness of breath. Denies any chest pain Physical Exam Vital signs: Vital Signs 06/22/18 11:16 06/22/18 12:00 06/22/18 12:21 Temperature 98.2 F Pulse Rate 78 105 H 82 Respiratory Rate 20 16 Blood Pressure 126/66 Pulse Oximetry 97 06/22/18 16:00 06/22/18 18:17 06/22/18 18:21 Temperature 97.6 F Pulse Rate 99 H 100 H 90 Respiratory Rate 20 20 Blood Pressure 118/72 Pulse Oximetry 98 97 06/22/18 20:00 06/22/18 20:44 06/22/18 20:49 Temperature 97.9 F Pulse Rate 105 H 78 Respiratory Rate 18 16 Blood Pressure 131/82 Pulse Oximetry 95 96 06/23/18 00:00 06/23/18 00:32 06/23/18 03:45 Temperature 98.1 F Pulse Rate 88 74 72 Respiratory Rate 18 16 16 Blood Pressure 109/61 Pulse Oximetry 99 06/23/18 04:00 06/23/18 07:20 06/23/18 08:18 Temperature 98 F 98.2 F Pulse Rate 91 H 94 H 91 H Respiratory Rate 18 20 16 Blood Pressure 112/59 L 130/66 Pulse Oximetry 94 L 99 93 L Intake & Output 06/22/18 06/23/18 06/23/18 18:59 06:59 18:59 Intake Total 240 / 240 Balance 240 / 240 Intake: Oral 240 / 240 Other: # Voids 2 1 Date of Last Bowel Movement 06/21/18 06/23/18 Narrative: GENERAL: NAD SKIN: Warm and dry. HEAD: Atraumatic. Normocephalic. EYES: Pupils equal and round. No scleral icterus. No injection or drainage. ENT: No nasal bleeding or discharge. Mucous membranes pink and moist. NECK: Trachea midline. No JVD. CARDIOVASCULAR: Regular rate and rhythm. RESPIRATORY: No accessory muscle use. Breath sounds decreased bilaterally. Inspiratory and expiratory wheezes bilaterally GASTROINTESTINAL: Abdomen soft, non-tender, nondistended. Hepatic and splenic margins not palpable. MUSCULOSKELETAL: Extremities without clubbing, cyanosis, or edema. No obvious deformities. NEUROLOGICAL: Awake and alert. No obvious cranial nerve deficits. Motor grossly within normal limits. Five out of 5 muscle strength in the arms and legs. Normal speech. PSYCHIATRIC: Appropriate mood and affect; insight and judgment normal. Results - Labs CBC & Chem 7: 06/21/18 06:50 06/21/18 06:50 - Procedures None Assessment and Plan - Assessment (1) HTN (hypertension) Code(s): I10 - Essential (primary) hypertension Status: Acute (2) Dehydration Code(s): E86.0 - Dehydration Status: Acute (3) COPD (chronic obstructive pulmonary disease) Code(s): J44.9 - Chronic obstructive pulmonary disease, unspecified Status: Acute - Plan 62-year-old female with Acute on chronic COPD exacerbation Chronic respiratory failure on oxygen dependent Currently on Solu-Medrol 80 mg IV every 6 hours, azithromycin, long-acting and short acting beta agonist, Singulair, Mucinex Consider prophylactic ISS secondary to steroid-induced hyperglycemia Maintain oxygen saturation above 92% Plan for PFT on Sunday per pulmonary medicine Dehydration: BUN 26, GFR 85, no previous labs for comparison, likely acute due to increased respiratory losses -Resolved HTN/HLD: Chronic -Continue Norvasc 5 mg daily, statin Hypothyroidism: Chronic -Continue levothyroxine DVT Prophylaxis: Heparin sq every 12 hours SCD/Teds Consult PT to treat and eval CMP in a.m.
--- NOTE | 2018-06-23 16:05 | P.PN ---
Subjective Interval history: She is making some progress. On O2 2 L. Less wheezing and cough Still on Solu-Medrol 80 mg IV. Seems anxious. Physical Exam Vital signs: Vital Signs 06/22/18 18:17 06/22/18 18:21 06/22/18 20:00 Temperature 97.9 F Pulse Rate 100 H 90 105 H Respiratory Rate 20 18 Blood Pressure 131/82 Pulse Oximetry 97 95 06/22/18 20:44 06/22/18 20:49 06/23/18 00:00 Temperature 98.1 F Pulse Rate 78 88 Respiratory Rate 16 18 Blood Pressure 109/61 Pulse Oximetry 96 99 06/23/18 00:32 06/23/18 03:45 06/23/18 04:00 Temperature 98 F Pulse Rate 74 72 91 H Respiratory Rate 16 16 18 Blood Pressure 112/59 L Pulse Oximetry 94 L 06/23/18 07:20 06/23/18 08:18 06/23/18 11:20 Temperature 98.2 F 98.1 F Pulse Rate 94 H 91 H 68 Respiratory Rate 20 16 18 Blood Pressure 130/66 152/67 H Pulse Oximetry 99 93 L 97 06/23/18 11:35 06/23/18 13:55 Temperature Pulse Rate 77 97 H Respiratory Rate 16 Blood Pressure Pulse Oximetry Intake & Output 06/22/18 06/23/18 06/23/18 18:59 06:59 18:59 Intake Total 240 / 240 Balance 240 / 240 Intake: Oral 240 / 240 Other: # Voids 2 1 Date of Last Bowel Movement 06/21/18 06/23/18 Narrative: GENERAL: Middle-aged white female alert NAD SKIN: Warm and dry. HEAD: Atraumatic. Normocephalic. EYES: Pupils equal and round. No scleral icterus. No injection or drainage. ENT: No nasal bleeding or discharge. Mucous membranes pink and moist. NECK: Trachea midline. No JVD. CARDIOVASCULAR: Regular rate and rhythm. RESPIRATORY: No accessory muscle use. Breath sounds decreased bilaterally. Inspiratory and expiratory wheezes bilaterally GASTROINTESTINAL: Abdomen soft, non-tender, nondistended. Hepatic and splenic margins not palpable. MUSCULOSKELETAL: Extremities without clubbing, cyanosis, or edema. No obvious deformities. NEUROLOGICAL: Awake and alert. No obvious cranial nerve deficits. Motor grossly within normal limits. Results - Labs CBC & Chem 7: 06/21/18 06:50 06/21/18 06:50 - Procedures None Assessment and Plan - Assessment (1) Asthma Code(s): J45.909 - Unspecified asthma, uncomplicated Status: Acute (2) COPD (chronic obstructive pulmonary disease) Code(s): J44.9 - Chronic obstructive pulmonary disease, unspecified Status: Acute (3) Dehydration Code(s): E86.0 - Dehydration Status: Acute (4) HTN (hypertension) Code(s): I10 - Essential (primary) hypertension Status: Acute (5) COPD with acute exacerbation Code(s): J44.1 - Chronic obstructive pulmonary disease with (acute) exacerbation Status: Acute - Plan 1. Taper Solumedrol 60 mg IV Q8H 2. Duoneb nebs qid. 3. Cont singulair 10 mg daily. 4. O2 2 L N/C 5. PFT on Sunday 6. Ambulate in halls
[2018-06-24] MEDS: MethylPREDNISolone Sod Succinate Inj 125 MG/2 ML Vial IV.PUSH SCH ×3 (05:55→17:03)
[2018-06-24 08:24] LABS: Alanine Aminotransferase 34 U/L (10-53); Albumin 3.1 g/dL (3.4-5.0); Anion Gap 6 meq/L (5-15); Aspartate Aminotransferase 11 U/L (15-37); Blood Urea Nitrogen 27 mg/dL (7-18); Calcium 8.7 mg/dL (8.5-10.1); Carbon Dioxide 30.3 meq/L (21.0-32.0); Chloride 109 meq/L (98-107); Glomerular Filtration Rate 77 mL/min (>89); Glucose,Random 131 mg/dL (74-106); Potassium 4.3 meq/L (3.5-5.1); Sodium 145 meq/L (136-145)
[2018-06-24 08:26] LABS: Alkaline Phosphatase 51 U/L (45-117); Total Protein 5.8 g/dL (6.4-8.2)
[2018-06-24] MEDS: Fluconazole 100 MG Tablet PO SCH (08:41)
[2018-06-24] MEDS: Famotidine 20 MG Tablet PO SCH ×2 (08:41→21:04)
[2018-06-24] MEDS: Venlafaxine XR 75 MG Capsule PO SCH (08:41)
[2018-06-24] MEDS: Benzonatate 100 MG Capsule PO SCH ×3 (08:42→17:03)
[2018-06-24] MEDS: Heparin - SQ 10,000 UNITS/ML Vial SQ SCH ×2 (08:42→21:05)
[2018-06-24] MEDS: Azithromycin 250 MG Tablet PO SCH (08:42)
[2018-06-24] MEDS: guaiFENesin 600 MG ER Tablet PO SCH ×2 (08:42→21:04)
[2018-06-24] MEDS: amLODIPine 5 MG Tablet PO SCH (08:42)
[2018-06-24] MEDS: Montelukast 10 MG Tablet PO SCH (08:43)
--- NOTE | 2018-06-24 11:25 | P.PNIM ---
Subjective Interval history: Follow-up COPD exacerbation June 24, 2018-patient seen and examined, reports some improvement of shortness of breath and wheezing. Afebrile. Physical Exam Vital signs: Vital Signs 06/23/18 11:35 06/23/18 11:40 06/23/18 13:55 Temperature 97.3 F L Pulse Rate 77 84 97 H Respiratory Rate 16 18 Blood Pressure 134/65 Pulse Oximetry 98 06/23/18 15:15 06/23/18 16:52 06/23/18 19:30 Temperature 98.0 F 97.8 F Pulse Rate 98 H 70 97 H Respiratory Rate 20 18 18 Blood Pressure 147/60 H 110/63 Pulse Oximetry 98 98 06/23/18 20:42 06/24/18 01:14 06/24/18 01:42 Temperature Pulse Rate 87 88 90 Respiratory Rate 18 18 Blood Pressure Pulse Oximetry 96 95 06/24/18 03:25 06/24/18 04:20 06/24/18 05:29 Temperature 97.6 F Pulse Rate 81 84 82 Respiratory Rate 18 17 Blood Pressure 123/65 Pulse Oximetry 97 06/24/18 05:30 06/24/18 07:55 06/24/18 09:03 Temperature 98.1 F Pulse Rate 85 80 Respiratory Rate 17 16 Blood Pressure 154/70 H Pulse Oximetry 98 98 96 Intake & Output 06/23/18 06/24/18 06/24/18 18:59 06:59 18:59 Weight 54.6 kg Other: # Voids 1 Date of Last Bowel Movement 06/23/18 06/23/18 Narrative: GENERAL: NAD SKIN: Warm and dry. HEAD: Atraumatic. Normocephalic. EYES: Pupils equal and round. No scleral icterus. No injection or drainage. ENT: No nasal bleeding or discharge. Mucous membranes pink and moist. NECK: Trachea midline. No JVD. CARDIOVASCULAR: Regular rate and rhythm. RESPIRATORY: No accessory muscle use. Clear to auscultation. Breath sounds equal bilaterally. Expiratory wheezes GASTROINTESTINAL: Abdomen soft, non-tender, nondistended. Hepatic and splenic margins not palpable. MUSCULOSKELETAL: Extremities without clubbing, cyanosis, or edema. No obvious deformities. NEUROLOGICAL: Awake and alert. No obvious cranial nerve deficits. Motor grossly within normal limits. Five out of 5 muscle strength in the arms and legs. Normal speech. PSYCHIATRIC: Appropriate mood and affect; insight and judgment normal. Results Labs CBC & Chem 7: 06/21/18 06:50 06/24/18 06:30 Procedures Procedures: None Assessment and Plan (1) HTN (hypertension): Code(s): I10 - Essential (primary) hypertension Status: Acute (2) Dehydration: Code(s): E86.0 - Dehydration Status: Acute (3) COPD (chronic obstructive pulmonary disease): Code(s): J44.9 - Chronic obstructive pulmonary disease, unspecified Status: Acute (4) Asthma: Code(s): J45.909 - Unspecified asthma, uncomplicated Status: Acute (5) COPD with acute exacerbation: Code(s): J44.1 - Chronic obstructive pulmonary disease with (acute) exacerbation Status: Acute Plan 62-year-old female with Acute on chronic COPD exacerbation Currently on Solu-Medrol 60 mg IV every 6 hours, azithromycin, long-acting and short acting beta agonist, Singulair, Mucinex Consider prophylactic ISS secondary to steroid-induced hyperglycemia Maintain oxygen saturation above 92% Plan for PFT today Sunday June 24, 2018 per pulmonary medicine Dehydration: BUN 26, GFR 85, no previous labs for comparison, likely acute due to increased respiratory losses -Resolved HTN/HLD: Chronic -Continue Norvasc 5 mg daily, statin Hypothyroidism: Chronic -Continue levothyroxine DVT Prophylaxis: Heparin sq every 12 hours SCD/Teds Consult PT to treat and eval Progress Note: Quality VTE Deep Vein Thrombosis/Pulmonary Embolism Present on Admission: No _ (1) HTN (hypertension) Qualifiers: Hypertension type: (2) COPD (chronic obstructive pulmonary disease) Qualifiers: COPD type: Chronic bronchitis type: Emphysema type: (3) Asthma Qualifiers: Asthma severity: Asthma persistence: Asthma complication type:
--- NOTE | 2018-06-24 16:04 | P.PNPL ---
Subjective Interval history: 62 YOWF with br asthma exac, Bronchitis Still sob has Wheezing requiring Supplement al 02 Ambulates Physical Exam Vital signs: Vital Signs 06/23/18 16:52 06/23/18 19:30 06/23/18 20:42 Temperature 97.8 F Pulse Rate 70 97 H 87 Respiratory Rate 18 18 18 Blood Pressure 110/63 Pulse Oximetry 98 96 06/24/18 01:14 06/24/18 01:42 06/24/18 03:25 Temperature 97.6 F Pulse Rate 88 90 81 Respiratory Rate 18 18 Blood Pressure 123/65 Pulse Oximetry 95 97 06/24/18 04:20 06/24/18 05:29 06/24/18 05:30 Temperature Pulse Rate 84 82 Respiratory Rate 17 Blood Pressure Pulse Oximetry 98 06/24/18 07:55 06/24/18 09:03 06/24/18 11:50 Temperature 98.1 F 97.4 F L Pulse Rate 85 80 92 H Respiratory Rate 17 16 16 Blood Pressure 154/70 H 127/68 Pulse Oximetry 98 96 96 06/24/18 12:30 06/24/18 15:52 06/24/18 15:56 Temperature 97.6 F Pulse Rate 81 98 H 70 Respiratory Rate 16 20 18 Blood Pressure 133/77 Pulse Oximetry 96 Intake & Output 06/23/18 06/24/18 06/24/18 18:59 06:59 18:59 Weight 54.6 kg Other: # Voids 1 Date of Last Bowel Movement 06/23/18 06/23/18 06/23/18 GENERAL: MBMn Mild sob SKIN: Warm and dry. HEAD: Normocephalic. EYES: No scleral icterus. No injection or drainage. NECK: Supple, trachea midline. No JVD or lymphadenopathy. CARDIOVASCULAR: Regular rate and rhythm without murmurs, gallops, or rubs. RESPIRATORY: Breath sounds equal bilaterally. No accessory muscle use. Exp rhonchi. GASTROINTESTINAL: Abdomen soft, non-tender, nondistended. MUSCULOSKELETAL: No cyanosis, or edema. BACK: Nontender without obvious deformity. No CVA tenderness. Assessment and Plan - Plan IMPRESSION: 1. Chronic obstructive pulmonary disease exacerbation/bronchial asthma. 2. Bronchitis. 3. Hypertension. 4. Anxiety. 5. Hypothyroidism. 6. History of appendectomy, hysterectomy, sigmoidectomy. PLAN: IV Solumedrol 60 mg q 6 hrs Aerosol nebs Cont Abx Zithro 500 mg daily Breao Ellipta once a day. Supplement 02 to keep sat >90% heparin 5000 IU sq q 12 hrs
[2018-06-25] MEDS: MethylPREDNISolone Sod Succinate Inj 125 MG/2 ML Vial IV.PUSH SCH ×5 (00:54→22:15)
[2018-06-25] MEDS: Venlafaxine XR 75 MG Capsule PO SCH (08:40)
[2018-06-25] MEDS: Fluconazole 100 MG Tablet PO SCH (08:41)
[2018-06-25] MEDS: Benzonatate 100 MG Capsule PO SCH ×3 (08:41→17:46)
[2018-06-25] MEDS: Azithromycin 250 MG Tablet PO SCH (08:41)
[2018-06-25] MEDS: Famotidine 20 MG Tablet PO SCH ×2 (08:41→22:16)
[2018-06-25] MEDS: amLODIPine 5 MG Tablet PO SCH (08:42)
[2018-06-25] MEDS: Montelukast 10 MG Tablet PO SCH (08:42)
[2018-06-25] MEDS: guaiFENesin 600 MG ER Tablet PO SCH ×2 (08:43→22:16)
[2018-06-25] MEDS: Heparin - SQ 10,000 UNITS/ML Vial SQ SCH ×2 (08:45→22:16)
--- NOTE | 2018-06-25 10:08 | P.PNIM ---
Subjective Interval history: Follow-up acute on chronic COPD exacerbation June 25, 2018patient seen and examined, reports some improvement of shortness of breath. Complains of bilateral lower extremities pain. Afebrile. Physical Exam Vital signs: Vital Signs 06/24/18 11:50 06/24/18 12:30 06/24/18 15:52 Temperature 97.4 F L 97.6 F Pulse Rate 92 H 81 98 H Respiratory Rate 16 16 20 Blood Pressure 127/68 133/77 Pulse Oximetry 96 96 06/24/18 15:56 06/24/18 19:28 06/24/18 20:00 Temperature 97.9 F Pulse Rate 70 95 H 96 H Respiratory Rate 18 18 Blood Pressure 127/70 Pulse Oximetry 99 99 06/24/18 21:42 06/25/18 00:00 06/25/18 00:12 Temperature 97.6 F Pulse Rate 93 H 83 74 Respiratory Rate 18 18 18 Blood Pressure 110/63 Pulse Oximetry 96 95 06/25/18 03:30 06/25/18 03:43 06/25/18 07:38 Temperature 97.9 F 97.6 F Pulse Rate 86 71 81 Respiratory Rate 18 18 18 Blood Pressure 109/59 L 119/66 Pulse Oximetry 97 95 06/25/18 08:42 Temperature Pulse Rate 85 Respiratory Rate 16 Blood Pressure Pulse Oximetry 96 Intake & Output 06/24/18 06/25/18 06/25/18 18:59 06:59 18:59 Intake Total 221 / 221 Balance 221 / 221 Weight 57.3 kg Intake: Oral 221 / 221 Other: # Voids 3 Date of Last Bowel Movement 06/23/18 06/24/18 06/24/18 Narrative: GENERAL: NAD SKIN: Warm and dry. HEAD: Atraumatic. Normocephalic. EYES: Pupils equal and round. No scleral icterus. No injection or drainage. ENT: No nasal bleeding or discharge. Mucous membranes pink and moist. NECK: Trachea midline. No JVD. CARDIOVASCULAR: Regular rate and rhythm. RESPIRATORY: No accessory muscle use. Clear to auscultation. Breath sounds equal bilaterally. Expiratory wheezes GASTROINTESTINAL: Abdomen soft, non-tender, nondistended. Hepatic and splenic margins not palpable. MUSCULOSKELETAL: Extremities without clubbing, cyanosis, or edema. No obvious deformities. NEUROLOGICAL: Awake and alert. No obvious cranial nerve deficits. Motor grossly within normal limits. Five out of 5 muscle strength in the arms and legs. Normal speech. PSYCHIATRIC: Appropriate mood and affect; insight and judgment normal. Results Labs CBC & Chem 7: 06/21/18 06:50 06/24/18 06:30 Procedures Procedures: None Assessment and Plan (1) HTN (hypertension): Code(s): I10 - Essential (primary) hypertension Status: Acute (2) Dehydration: Code(s): E86.0 - Dehydration Status: Acute (3) COPD (chronic obstructive pulmonary disease): Code(s): J44.9 - Chronic obstructive pulmonary disease, unspecified Status: Acute (4) Asthma: Code(s): J45.909 - Unspecified asthma, uncomplicated Status: Acute (5) COPD with acute exacerbation: Code(s): J44.1 - Chronic obstructive pulmonary disease with (acute) exacerbation Status: Acute Plan 62-year-old female with Acute on chronic COPD exacerbation Currently on Solu-Medrol 60 mg IV every 6 hours, azithromycin, long-acting and short acting beta agonist, Singulair, Mucinex Consider prophylactic ISS secondary to steroid-induced hyperglycemia Maintain oxygen saturation above 90% Appreciate input from pulmonary medicine Dehydration: BUN 26, GFR 85, no previous labs for comparison, likely acute due to increased respiratory losses -Resolved HTN/HLD: Chronic -Continue Norvasc 5 mg daily, statin Hypothyroidism: Chronic -Continue levothyroxine DVT Prophylaxis: Heparin sq every 12 hours SCD/Teds PT to treat and eval Progress Note: Quality VTE Deep Vein Thrombosis/Pulmonary Embolism Present on Admission: No _ (1) HTN (hypertension) Qualifiers: Hypertension type: (2) COPD (chronic obstructive pulmonary disease) Qualifiers: COPD type: Chronic bronchitis type: Emphysema type: (3) Asthma Qualifiers: Asthma severity: Asthma persistence: Asthma complication type:
--- NOTE | 2018-06-25 19:52 | P.PNPL ---
Subjective Interval history: 81 YOWF with COPD,FUNMILAYO, CAD Undergoing rehab Denies sob No CP Still sob, not a whole lot better than yesterday Physical Exam Vital signs: Vital Signs 06/24/18 20:00 06/24/18 21:42 06/25/18 00:00 Temperature 97.6 F Pulse Rate 96 H 93 H 83 Respiratory Rate 18 18 Blood Pressure 110/63 Pulse Oximetry 99 96 95 06/25/18 00:12 06/25/18 03:30 06/25/18 03:43 Temperature 97.9 F Pulse Rate 74 86 71 Respiratory Rate 18 18 18 Blood Pressure 109/59 L Pulse Oximetry 97 06/25/18 07:38 06/25/18 08:42 06/25/18 11:32 Temperature 97.6 F 98.0 F Pulse Rate 81 85 97 H Respiratory Rate 18 16 20 Blood Pressure 119/66 149/70 H Pulse Oximetry 95 96 98 06/25/18 12:16 06/25/18 16:00 06/25/18 16:44 Temperature 98.1 F Pulse Rate 102 H 99 H 103 H Respiratory Rate 20 18 18 Blood Pressure 114/59 L Pulse Oximetry 96 Intake & Output 06/25/18 06/25/18 06/26/18 06:59 18:59 06:59 Intake Total 221 / 221 Balance 221 / 221 Weight 57.3 kg Intake: Oral 221 / 221 Other: # Voids 3 Date of Last Bowel Movement 06/24/18 06/24/18 GENERAL: MBMN Mils sob SKIN: Warm and dry. HEAD: Normocephalic. EYES: No scleral icterus. No injection or drainage. NECK: Supple, trachea midline. No JVD or lymphadenopathy. CARDIOVASCULAR: Regular rate and rhythm without murmurs, gallops, or rubs. RESPIRATORY: Breath sounds equal bilaterally. No accessory muscle use. End exp rhonchi. GASTROINTESTINAL: Abdomen soft, non-tender, nondistended. MUSCULOSKELETAL: No cyanosis, or edema. BACK: Nontender without obvious deformity. No CVA tenderness. Assessment and Plan - Plan IMPRESSION: 1. Chronic obstructive pulmonary disease exacerbation/bronchial asthma. 2. Bronchitis. 3. Hypertension. 4. Anxiety. 5. Hypothyroidism. 6. History of appendectomy, hysterectomy, sigmoidectomy. PLAN: IV Solumedrol 60 mg q 6 hrs Aerosol nebs Cont Abx Zithro 500 mg daily Breao Ellipta once a day. Supplement 02 to keep sat >90% heparin 5000 IU sq q 12 hrs
[2018-06-26] MEDS: MethylPREDNISolone Sod Succinate Inj 125 MG/2 ML Vial IV.PUSH SCH ×3 (06:25→17:17)
--- NOTE | 2018-06-26 09:15 | P.PNIM ---
Subjective Interval history: Follow-up acute on chronic COPD exacerbation June 26, 2018patient seen and examined, she has significant wheezing on exam and reports shortness of breath without any chest pain. Physical Exam Vital signs: Vital Signs 06/25/18 11:32 06/25/18 12:16 06/25/18 16:00 Temperature 98.0 F 98.1 F Pulse Rate 97 H 102 H 99 H Respiratory Rate 20 20 18 Blood Pressure 149/70 H 114/59 L Pulse Oximetry 98 96 06/25/18 16:44 06/25/18 19:20 06/25/18 20:35 Temperature 97.7 F Pulse Rate 103 H 100 H 102 H Respiratory Rate 18 18 Blood Pressure 137/69 Pulse Oximetry 95 06/25/18 21:13 06/25/18 23:45 06/26/18 00:00 Temperature 98.2 F Pulse Rate 101 H 100 H 96 H Respiratory Rate 18 18 Blood Pressure 134/64 Pulse Oximetry 98 97 06/26/18 00:31 06/26/18 03:43 06/26/18 04:00 Temperature Pulse Rate 94 H 94 H Respiratory Rate 18 18 Blood Pressure Pulse Oximetry 97 06/26/18 04:04 06/26/18 04:35 06/26/18 07:35 Temperature 97.8 F 98.3 F Pulse Rate 79 98 H 95 H Respiratory Rate 17 18 20 Blood Pressure 138/74 154/77 H Pulse Oximetry 98 97 06/26/18 08:27 06/26/18 08:28 Temperature Pulse Rate 100 H Respiratory Rate 20 Blood Pressure Pulse Oximetry 100 Intake & Output 06/25/18 06/26/18 06/26/18 18:59 06:59 18:59 Weight 56.5 kg Other: # Voids 3 Date of Last Bowel Movement 06/24/18 06/24/18 Narrative: GENERAL: NAD SKIN: Warm and dry. HEAD: Atraumatic. Normocephalic. EYES: Pupils equal and round. No scleral icterus. No injection or drainage. ENT: No nasal bleeding or discharge. Mucous membranes pink and moist. NECK: Trachea midline. No JVD. CARDIOVASCULAR: Regular rate and rhythm. RESPIRATORY: No accessory muscle use. Clear to auscultation. Breath sounds equal bilaterally. Expiratory wheezes GASTROINTESTINAL: Abdomen soft, non-tender, nondistended. Hepatic and splenic margins not palpable. MUSCULOSKELETAL: Extremities without clubbing, cyanosis, or edema. No obvious deformities. NEUROLOGICAL: Awake and alert. No obvious cranial nerve deficits. Motor grossly within normal limits. Five out of 5 muscle strength in the arms and legs. Normal speech. PSYCHIATRIC: Appropriate mood and affect; insight and judgment normal. Results Labs CBC & Chem 7: 06/21/18 06:50 06/24/18 06:30 Procedures Procedures: None Assessment and Plan (1) HTN (hypertension): Code(s): I10 - Essential (primary) hypertension Status: Acute (2) Dehydration: Code(s): E86.0 - Dehydration Status: Acute (3) COPD (chronic obstructive pulmonary disease): Code(s): J44.9 - Chronic obstructive pulmonary disease, unspecified Status: Acute (4) Asthma: Code(s): J45.909 - Unspecified asthma, uncomplicated Status: Acute (5) COPD with acute exacerbation: Code(s): J44.1 - Chronic obstructive pulmonary disease with (acute) exacerbation Status: Acute Plan 62-year-old female with Acute on chronic COPD exacerbation Currently on Solu-Medrol 60 mg IV every 6 hours, azithromycin, long-acting and short acting beta agonist, Singulair, Mucinex Maintain oxygen saturation above 90% Appreciate input from pulmonary medicine Patient will require long course of IV steroid until improvement of symptoms prior to discharge Dehydration: BUN 26, GFR 85, no previous labs for comparison, likely acute due to increased respiratory losses -Resolved HTN/HLD: Chronic -Continue Norvasc 5 mg daily, statin Hypothyroidism: Chronic -Continue levothyroxine DVT Prophylaxis: Heparin sq every 12 hours SCD/Teds PT to treat and eval Progress Note: Quality VTE Deep Vein Thrombosis/Pulmonary Embolism Present on Admission: No _ (1) HTN (hypertension) Qualifiers: Hypertension type: (2) COPD (chronic obstructive pulmonary disease) Qualifiers: COPD type: Chronic bronchitis type: Emphysema type: (3) Asthma Qualifiers: Asthma severity: Asthma persistence: Asthma complication type:
[2018-06-26] MEDS: amLODIPine 5 MG Tablet PO SCH (09:25)
[2018-06-26] MEDS: Venlafaxine XR 75 MG Capsule PO SCH (09:26)
[2018-06-26] MEDS: Benzonatate 100 MG Capsule PO SCH ×3 (09:26→17:17)
[2018-06-26] MEDS: Fluconazole 100 MG Tablet PO SCH (09:27)
[2018-06-26] MEDS: Famotidine 20 MG Tablet PO SCH ×2 (09:27→22:55)
[2018-06-26] MEDS: Montelukast 10 MG Tablet PO SCH (09:27)
[2018-06-26] MEDS: guaiFENesin 600 MG ER Tablet PO SCH ×2 (09:27→22:55)
[2018-06-26] MEDS: Azithromycin 250 MG Tablet PO SCH (09:27)
[2018-06-26] MEDS: Heparin - SQ 10,000 UNITS/ML Vial SQ SCH ×2 (09:27→22:55)
--- NOTE | 2018-06-26 19:22 | P.PNPL ---
Subjective Interval history: 62 YOWF with br asthma exac, Bronchitis Still sob but better Weaned to RA Ambulates Feels weak Physical Exam Vital signs: Vital Signs 06/25/18 20:35 06/25/18 21:13 06/25/18 23:45 Temperature 98.2 F Pulse Rate 102 H 101 H 100 H Respiratory Rate 18 18 Blood Pressure 134/64 Pulse Oximetry 98 97 06/26/18 00:00 06/26/18 00:31 06/26/18 03:43 Temperature Pulse Rate 96 H 94 H Respiratory Rate 18 18 Blood Pressure Pulse Oximetry 97 06/26/18 04:00 06/26/18 04:04 06/26/18 04:35 Temperature 97.8 F Pulse Rate 94 H 79 98 H Respiratory Rate 17 18 Blood Pressure 138/74 Pulse Oximetry 98 06/26/18 07:35 06/26/18 08:00 06/26/18 08:27 Temperature 98.3 F Pulse Rate 95 H 133 H 100 H Respiratory Rate 20 20 Blood Pressure 154/77 H Pulse Oximetry 97 06/26/18 08:28 06/26/18 09:30 06/26/18 11:39 Temperature Pulse Rate 100 H Respiratory Rate 20 20 Blood Pressure Pulse Oximetry 100 06/26/18 12:00 06/26/18 15:25 Temperature 97.8 F 97.7 F Pulse Rate 115 H 100 H Respiratory Rate 20 20 Blood Pressure 141/72 H 124/63 Pulse Oximetry 95 95 Intake & Output 06/26/18 06/26/18 06/27/18 06:59 18:59 06:59 Weight 56.5 kg Other: # Voids 3 Date of Last Bowel Movement 06/24/18 06/24/18 GENERAL: MBMN Mild sob SKIN: Warm and dry. HEAD: Normocephalic. EYES: No scleral icterus. No injection or drainage. NECK: Supple, trachea midline. No JVD or lymphadenopathy. CARDIOVASCULAR: Regular rate and rhythm without murmurs, gallops, or rubs. RESPIRATORY: Breath sounds equal bilaterally. No accessory muscle use. Exp rhonchi. GASTROINTESTINAL: Abdomen soft, non-tender, nondistended. MUSCULOSKELETAL: No cyanosis, or edema. BACK: Nontender without obvious deformity. No CVA tenderness. Assessment and Plan - Plan IMPRESSION: 1. Chronic obstructive pulmonary disease exacerbation/bronchial asthma. 2. Bronchitis. 3. Hypertension. 4. Anxiety. 5. Hypothyroidism. 6. History of appendectomy, hysterectomy, sigmoidectomy. PLAN: DC Solumedrol Prednisone 20 mg tid Aerosol nebs Cont Abx Zithro 500 mg daily Breao Ellipta once a day. Supplement 02 to keep sat >90% heparin 5000 IU sq q 12 hrs
[2018-06-27] MEDS: predniSONE 10 MG Tablet PO SCH ×3 (08:31→17:38)
[2018-06-27] MEDS: Ibuprofen 400 MG Tablet PO PRN (08:31)
[2018-06-27] MEDS: Azithromycin 250 MG Tablet PO SCH (08:32)
[2018-06-27] MEDS: Famotidine 20 MG Tablet PO SCH ×2 (08:32→21:34)
[2018-06-27] MEDS: Fluconazole 100 MG Tablet PO SCH (08:32)
[2018-06-27] MEDS: Montelukast 10 MG Tablet PO SCH (08:32)
[2018-06-27] MEDS: Heparin - SQ 10,000 UNITS/ML Vial SQ SCH ×2 (08:32→21:34)
[2018-06-27] MEDS: Benzonatate 100 MG Capsule PO SCH ×3 (08:32→17:39)
[2018-06-27] MEDS: guaiFENesin 600 MG ER Tablet PO SCH ×2 (08:32→21:34)
[2018-06-27] MEDS: amLODIPine 5 MG Tablet PO SCH (08:32)
[2018-06-27] MEDS: Venlafaxine XR 75 MG Capsule PO SCH (08:38)
--- NOTE | 2018-06-27 09:47 | P.PNIM ---
Subjective Interval history: Follow-up acute on chronic COPD exacerbation June 27, 2018patient seen and examined, respiratory symptoms improving. Patient currently on p.o. prednisone. Physical Exam Vital signs: Vital Signs 06/26/18 11:39 06/26/18 12:00 06/26/18 15:25 Temperature 97.8 F 97.7 F Pulse Rate 100 H 115 H 100 H Respiratory Rate 20 20 20 Blood Pressure 141/72 H 124/63 Pulse Oximetry 95 95 06/26/18 20:20 06/26/18 20:30 06/27/18 00:20 Temperature 97.9 F 97.2 F L Pulse Rate 97 H 89 79 Respiratory Rate 20 20 Blood Pressure 150/67 H 133/78 Pulse Oximetry 95 95 06/27/18 00:30 06/27/18 03:04 06/27/18 04:30 Temperature 97.5 F L Pulse Rate 90 74 Respiratory Rate 18 20 Blood Pressure 144/68 H Pulse Oximetry 06/27/18 07:55 Temperature 98.7 F Pulse Rate 84 Respiratory Rate 20 Blood Pressure 173/80 H Pulse Oximetry 100 Intake & Output 06/26/18 06/27/18 06/27/18 18:59 06:59 18:59 Weight 56.1 kg Other: # Voids 3 Date of Last Bowel Movement 06/24/18 Narrative: GENERAL: NAD SKIN: Warm and dry. HEAD: Atraumatic. Normocephalic. EYES: Pupils equal and round. No scleral icterus. No injection or drainage. ENT: No nasal bleeding or discharge. Mucous membranes pink and moist. NECK: Trachea midline. No JVD. CARDIOVASCULAR: Regular rate and rhythm. RESPIRATORY: No accessory muscle use. Clear to auscultation. Breath sounds equal bilaterally. Expiratory wheezes GASTROINTESTINAL: Abdomen soft, non-tender, nondistended. Hepatic and splenic margins not palpable. MUSCULOSKELETAL: Extremities without clubbing, cyanosis, or edema. No obvious deformities. NEUROLOGICAL: Awake and alert. No obvious cranial nerve deficits. Motor grossly within normal limits. Five out of 5 muscle strength in the arms and legs. Normal speech. PSYCHIATRIC: Appropriate mood and affect; insight and judgment normal. Results Labs CBC & Chem 7: 06/21/18 06:50 06/24/18 06:30 Procedures Procedures: None Assessment and Plan (1) HTN (hypertension): Code(s): I10 - Essential (primary) hypertension Status: Acute (2) Dehydration: Code(s): E86.0 - Dehydration Status: Acute (3) COPD (chronic obstructive pulmonary disease): Code(s): J44.9 - Chronic obstructive pulmonary disease, unspecified Status: Acute (4) Asthma: Code(s): J45.909 - Unspecified asthma, uncomplicated Status: Acute (5) COPD with acute exacerbation: Code(s): J44.1 - Chronic obstructive pulmonary disease with (acute) exacerbation Status: Acute Plan 62-year-old female with Acute on chronic COPD exacerbation s/p Solu-Medrol 60 mg IV every 6 hours, currently on prednisone 20 mg 3 times daily and continue azithromycin, long-acting and short acting beta agonist , Singulair, Mucinex Maintain oxygen saturation above 90% Appreciate input from pulmonary medicine Walk test prior to discharge June 28, 2018 Dehydration: BUN 26, GFR 85, no previous labs for comparison, likely acute due to increased respiratory losses -Resolved HTN/HLD: Chronic -Continue Norvasc 5 mg daily, statin Hypothyroidism: Chronic -Continue levothyroxine DVT Prophylaxis: Heparin sq every 12 hours SCD/Teds PT to treat and eval Progress Note: Quality VTE Deep Vein Thrombosis/Pulmonary Embolism Present on Admission: No _ (1) HTN (hypertension) Qualifiers: Hypertension type: (2) COPD (chronic obstructive pulmonary disease) Qualifiers: COPD type: Chronic bronchitis type: Emphysema type: (3) Asthma Qualifiers: Asthma severity: Asthma persistence: Asthma complication type:
--- NOTE | 2018-06-27 18:54 | P.PNPL ---
Subjective Interval history: 62 YOWF with br asthma exac, Bronchitis Still sob but better Weaned to RA Ambulates Feels weak No new complaint Physical Exam Vital signs: Vital Signs 06/26/18 20:20 06/26/18 20:30 06/27/18 00:20 Temperature 97.9 F 97.2 F L Pulse Rate 97 H 89 79 Respiratory Rate 20 20 Blood Pressure 150/67 H 133/78 Pulse Oximetry 95 95 06/27/18 00:30 06/27/18 03:04 06/27/18 04:30 Temperature 97.5 F L Pulse Rate 90 74 Respiratory Rate 18 20 Blood Pressure 144/68 H Pulse Oximetry 06/27/18 07:55 06/27/18 08:00 06/27/18 12:00 Temperature 98.7 F 97.9 F Pulse Rate 84 79 90 Respiratory Rate 20 20 Blood Pressure 173/80 H 123/61 Pulse Oximetry 100 97 06/27/18 16:00 Temperature 97.9 F Pulse Rate 85 Respiratory Rate 20 Blood Pressure 126/53 L Pulse Oximetry 98 Intake & Output 06/26/18 06/27/18 06/27/18 18:59 06:59 18:59 Intake Total 240 / 240 Balance 240 / 240 Weight 56.1 kg Intake: Oral 240 / 240 Other: # Voids 3 1 Date of Last Bowel Movement 06/24/18 06/24/18 GENERAL: MBMN Anxious, NAD SKIN: Warm and dry. HEAD: Normocephalic. EYES: No scleral icterus. No injection or drainage. NECK: Supple, trachea midline. No JVD or lymphadenopathy. CARDIOVASCULAR: Regular rate and rhythm without murmurs, gallops, or rubs. RESPIRATORY: Breath sounds equal bilaterally. No accessory muscle use. End exp rhonchi. GASTROINTESTINAL: Abdomen soft, non-tender, nondistended. MUSCULOSKELETAL: No cyanosis, or edema. BACK: Nontender without obvious deformity. No CVA tenderness. Assessment and Plan - Plan IMPRESSION: 1. Chronic obstructive pulmonary disease exacerbation/bronchial asthma. 2. Bronchitis. 3. Hypertension. 4. Anxiety. 5. Hypothyroidism. 6. History of appendectomy, hysterectomy, sigmoidectomy. PLAN: Prednisone 20 mg tid Aerosol nebs Cont Abx Zithro 500 mg daily Breao Ellipta once a day. Supplement 02 to keep sat >90% heparin 5000 IU sq q 12 hrs DC plans for home
[2018-06-28] MEDS: Ibuprofen 400 MG Tablet PO PRN (06:13)
--- NOTE | 2018-06-28 08:44 | P.PNIM ---
Subjective Interval history: Follow-up acute on chronic COPD exacerbation June 28, 2018patient seen and examined, reports significant improvement of shortness of breath states she is back to her baseline. Looking for discharge home today. Physical Exam Vital signs: Vital Signs 06/27/18 12:00 06/27/18 16:00 06/27/18 19:45 Temperature 97.9 F 97.9 F 98.1 F Pulse Rate 90 85 86 Respiratory Rate 20 20 20 Blood Pressure 123/61 126/53 L 125/73 Pulse Oximetry 97 98 95 06/28/18 00:00 06/28/18 00:20 06/28/18 02:00 Temperature 97.6 F Pulse Rate 87 79 Respiratory Rate 20 Blood Pressure 124/73 Pulse Oximetry 95 97 06/28/18 04:25 06/28/18 07:45 Temperature 98 F 98.1 F Pulse Rate 83 78 Respiratory Rate 20 16 Blood Pressure 144/91 H 158/78 H Pulse Oximetry 95 97 Intake & Output 06/27/18 06/28/18 06/28/18 18:59 06:59 18:59 Intake Total 240 / 240 Balance 240 / 240 Weight 54.5 kg Intake: Oral 240 / 240 Other: # Voids 1 3 Date of Last Bowel Movement 06/24/18 06/24/18 # Bowel Movements 1 Narrative: GENERAL: NAD SKIN: Warm and dry. HEAD: Atraumatic. Normocephalic. EYES: Pupils equal and round. No scleral icterus. No injection or drainage. ENT: No nasal bleeding or discharge. Mucous membranes pink and moist. NECK: Trachea midline. No JVD. CARDIOVASCULAR: Regular rate and rhythm. RESPIRATORY: No accessory muscle use. Clear to auscultation. Breath sounds equal bilaterally. GASTROINTESTINAL: Abdomen soft, non-tender, nondistended. Hepatic and splenic margins not palpable. MUSCULOSKELETAL: Extremities without clubbing, cyanosis, or edema. No obvious deformities. NEUROLOGICAL: Awake and alert. No obvious cranial nerve deficits. Motor grossly within normal limits. Five out of 5 muscle strength in the arms and legs. Normal speech. PSYCHIATRIC: Appropriate mood and affect; insight and judgment normal. Results Labs CBC & Chem 7: 06/21/18 06:50 06/24/18 06:30 Procedures Procedures: None Assessment and Plan (1) HTN (hypertension): Code(s): I10 - Essential (primary) hypertension Status: Acute (2) Dehydration: Code(s): E86.0 - Dehydration Status: Acute (3) COPD (chronic obstructive pulmonary disease): Code(s): J44.9 - Chronic obstructive pulmonary disease, unspecified Status: Acute (4) Asthma: Code(s): J45.909 - Unspecified asthma, uncomplicated Status: Acute (5) COPD with acute exacerbation: Code(s): J44.1 - Chronic obstructive pulmonary disease with (acute) exacerbation Status: Acute Plan 62-year-old female with Acute on chronic COPD exacerbation s/p Solu-Medrol 60 mg IV every 6 hours, currently on prednisone 20 mg 3 times daily and continue azithromycin, long-acting and short acting beta agonist , Singulair, Mucinex Maintain oxygen saturation above 90% Appreciate input from pulmonary medicine Dehydration: BUN 26, GFR 85, no previous labs for comparison, likely acute due to increased respiratory losses -Resolved HTN/HLD: Chronic -Continue Norvasc 5 mg daily, statin Hypothyroidism: Chronic -Continue levothyroxine DVT Prophylaxis: Heparin sq every 12 hours SCD/Teds PT to treat and eval Progress Note: Quality VTE Deep Vein Thrombosis/Pulmonary Embolism Present on Admission: No _ (1) HTN (hypertension) Qualifiers: Hypertension type: (2) COPD (chronic obstructive pulmonary disease) Qualifiers: COPD type: Chronic bronchitis type: Emphysema type: (3) Asthma Qualifiers: Asthma severity: Asthma persistence: Asthma complication type:
--- NOTE | 2018-06-28 08:47 | P.DS ---
DS: Providers Date of admission: 06/22/18 10:27 Primary care physician: Clark Rivers MD Consults: 06/20/18 19:22 Consult to Pulmonology Routine Consulting Provider: Elgin Sandoval Investment Accounting Clerk:: Zander Landin Patient known to:: Zander Landin Reason for Consultation: COPD, Pt known to Dr. Landin CONSULT FOR AM Notified:: Service Spoke with:: Jayla Date Notified:: 06/20/18 Time Notified:: 20:05 Comments:: Pt known to Dr. Landin, but MD does not come to [facility]. Given to top distribution executive MD. Ordering Provider: AINSLEY Brief History from admission: This is a 62-year-old female with a PMH of HTN, Hypothyroidism and COPD who was referred to the ER by her Printed Circuit Boards Router, Dr. Landin, for admission. Pt reports ongoing SOB/wheezing for the last 3wks, has been on PO steroids w/ tapering dose since 06/06/18 w/ minimal improvement. Seen in office today and referred to the ER for admission. Denies fever or chills. +cough, non-productive. +dyspnea w/ exertion. No c/o chest pain. On arrival, BP 136/65, HR 93, O2 sat 97% on RA, Afebrile. WBC 14.1. BUN 26, GFR 85. CXR with prominent emphysematous findings right upper lobe. DS: Diagnosis Discharge Diagnosis (1) HTN (hypertension): Status: Acute (2) Dehydration: Status: Acute (3) COPD (chronic obstructive pulmonary disease): Status: Acute (4) Asthma: Status: Acute (5) COPD with acute exacerbation: Status: Acute DS: Summary Patient admitted and diagnosed with acute on chronic COPD exacerbation for which she was started on IV Solu-Medrol with consultation to pulmonary medicine. She was continued on long and short acting beta agonists along with p.o. azithromycin. She was eventually switched to p.o. prednisone after a few days of therapy with improvement of respiratory symptoms. Patient was continued on treatment for other chronic medical conditions. Renal function improved with gentle IV fluid hydration. DVT and GI prophylaxis were provided. Physical therapy was consulted. Prior to discharge, patient's condition improved and vitals remained stable. She will be discharged home on prednisone 20 mg p.o. 3 times daily and was advised to follow-up with pulmonary medicine. Time Spent with Patient Total time spent providing and/or coordinating discharge services: Less than 30 minutes Quality: VTE Deep Vein Thrombosis/Pulmonary Embolism Present on Admission: No Exam Narrative Exam Narrative: GENERAL: NAD SKIN: Warm and dry. HEAD: Atraumatic. Normocephalic. EYES: Pupils equal and round. No scleral icterus. No injection or drainage. ENT: No nasal bleeding or discharge. Mucous membranes pink and moist. NECK: Trachea midline. No JVD. CARDIOVASCULAR: Regular rate and rhythm. RESPIRATORY: No accessory muscle use. Clear to auscultation. Breath sounds equal bilaterally. GASTROINTESTINAL: Abdomen soft, non-tender, nondistended. Hepatic and splenic margins not palpable. MUSCULOSKELETAL: Extremities without clubbing, cyanosis, or edema. No obvious deformities. NEUROLOGICAL: Awake and alert. No obvious cranial nerve deficits. Motor grossly within normal limits. Five out of 5 muscle strength in the arms and legs. Normal speech. PSYCHIATRIC: Appropriate mood and affect; insight and judgment normal. Results Procedures completed during hospitalization: None Labs on day of discharge: Labs from last 24 hours 06/27/18 06/27/18 06/27/18 21:33 17:34 12:03 POC Glucose 173 H 110 106 06/27/18 08:35 POC Glucose 72 Impressions ITS Impressions Chest X-Ray 06/20/18 17:32 CONCLUSION: 1. No acute cardiopulmonary disease identified. 2. Prominent emphysematous findings of the right upper lobe. Discharge Plan Discharge Disposition Patient Disposition: Discharge Home Discharge Order Discharge Orders: Discharge Order (Routine); Ordered 06/28/18 Ordered By: Ricky Toledo Physicians Team ED Provider: Erasto Day Primary Care Provider: Zander Rivers Attending Provider: Ricky Toledo Other Providers: Elgin Sandoval Rxs /Orders / Referrals /Forms Prescriptions: Continue fluconazole 100 mg Tablet 100 mg PO DAILY RF: 0 atorvastatin 20 mg Tablet 20 mg PO DAILY RF: 0 ipratropium-albuterol 0.5 mg-3 mg(2.5 mg base)/3 mL Solution For Nebulization 3 ml INHALATION QID RF: 0 amlodipine [Norvasc] 5 mg Tablet 5 mg PO DAILY RF: 0 levothyroxine [Synthroid] 25 mcg Tablet 25 mcg PO DAILY RF: 0 ranitidine HCl [Zantac] 150 mg Tablet 150 mg PO BID RF: 0 montelukast 10 mg Tablet 10 mg PO DAILY RF: 0 venlafaxine 225 mg Tablet Extended Release 24hr 225 mg PO DAILY RF: 0 fluticasone-vilanterol [Breo Ellipta] 200-25 mcg/dose Blister With Device 1 inh INHALATION DAILY RF: 0 prednisone 20 mg Tablet 20 mg PO TID Qty: 30 RF: 0 Referrals: Zander Rivers MD [Primary Care Provider] - See Instructions Discharge Interventions Interventions: Discharge Planning - Case Management Last Done: 06/27/18 12:30 Status ED Status: Left Department
[2018-06-28] MEDS: Montelukast 10 MG Tablet PO SCH (09:03)
[2018-06-28] MEDS: Benzonatate 100 MG Capsule PO SCH (09:03)
[2018-06-28] MEDS: Venlafaxine XR 75 MG Capsule PO SCH (09:03)
[2018-06-28] MEDS: amLODIPine 5 MG Tablet PO SCH (09:04)
[2018-06-28] MEDS: predniSONE 10 MG Tablet PO SCH (09:04)
[2018-06-28] MEDS: Fluconazole 100 MG Tablet PO SCH (09:04)
[2018-06-28] MEDS: guaiFENesin 600 MG ER Tablet PO SCH (09:04)
[2018-06-28] MEDS: Heparin - SQ 10,000 UNITS/ML Vial SQ SCH (09:05)
[2018-06-28] MEDS: Famotidine 20 MG Tablet PO SCH (09:07)
== END 2018-06-28 10:56 | disposition home or self-care (01) | DRG 190 ==
LOC: NEPC 15:59 → NEDA 15:59 → NEPHCDU 19:55 → N05 06-22 15:38
PROVIDERS: ADMIT Hospitalist; ATTEND Hospitalist
DX: J45.909 Unspecified asthma, uncomplicated; F41.9 Anxiety disorder, unspecified; E78.5 Hyperlipidemia, unspecified; I25.10 Atherosclerotic heart disease of native coronary artery without angina pectoris; Z90.710 Acquired absence of both cervix and uterus; Z88.2 Allergy status to sulfonamides; R00.0 Tachycardia, unspecified; I10 Essential (primary) hypertension; Z90.49 Acquired absence of other specified parts of digestive tract; E03.9 Hypothyroidism, unspecified; Z99.81 Dependence on supplemental oxygen; Z79.51 Long term (current) use of inhaled steroids; Z79.890 Hormone replacement therapy; Z87.891 Personal history of nicotine dependence; J43.9 Emphysema, unspecified; E86.0 Dehydration; Z79.899 Other long term (current) drug therapy; J96.20 Acute and chronic respiratory failure, unspecified whether with hypoxia or hypercapnia
CPT/HCPCS: 71010; 71045; 80053; 82947; 82948; 82962; 85025; 87275; 87276; 87804; 94640; 94664; 94665; 96361; 96374; 96376; 97162; 99285; G0378; J1644; J2920; J2930; J7050; J7506; J7512